=== PATIENT | male | born 1990 | race Caucasian/White ===

== ENCOUNTER 2018-03-14 13:11 | Inpatient (IN) | payer OTHER ==
[2018-03-14 17:02] VITALS: BMI 24.7
--- NOTE | 2018-03-14 18:07 | HP ---
"CIWA Score - Admission Criteria OASAS Guidelines: Admission for Medically Managed Detox: Requires at least one of the followin. CIWA greater than 12 2. Seizures within the past 24 hours 3. Delirium tremens within the past 24 hours 4. Hallucinations within the past 24 hours 5. Acute intervention needed for co occurring medical disorder 6. Acute intervention needed for co occurring psychiatric disorder 7. Severe withdrawal that cannot be handled at a lower level of care (continued vomiting, continued diarrhea, abnormal vital signs) requiring intravenous medication and/or fluids 8. Admission ROS S - HPI Allergies/Adverse Reactions: Allergies Allergy/AdvReac Type Severity Reaction Status Date / Time No Known Allergies Allergy Verified 03/14/18 17:20 History of Present Illness: patient here for rehab, claims he has court mandate for 28 days , does not have court order with him . Patient reports heroin use x 10 years , latest use last Tuesday , buprenorphine latest use last Tuesday . Heroin use : 4 bags /day IVDU in left UE, needles from the pharmacy , + sharing, + re-using, denies abscess , OD x 5-6 , Narcan by EMS , latest 1 yr ago . past use : benzo xanax stopped 6 mo ago , cocaine sporadic use latest use 3 weeks ago . etoh use : 3 beers/ day . tobacco : 1/[address] x 2 years due to continued relapse , was in half-way in the last week , released last night , transferred to this facility from [facility] . 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 was requested by: Nikki Willingham | Reference #: [id number] Others' Prescriptions Patient Name: Nitin Aguirre Date: 1990 Address: [address] [place] [id number] Sex: Male Rx Written Rx Dispensed Drug Quantity Days Supply Prescriber Name 03/09/2018 03/13/2018 chlordiazepoxide 25 mg capsule 26 5 Andrés Reynolds MD 08/18/2017 08/18/2017 chlordiazepoxide 25 mg capsule 26 5 Andrés Reynolds MD Patient Name: Nitin Aguirre Date: 1990 Address: [address] [place] [id number] Sex: Male Rx Written Rx Dispensed Drug Quantity Days Supply Prescriber Name 01/25/2018 01/25/2018 suboxone 4 mg-1 mg sl film 30 15 Valorie Solano NP, PHD 11/22/2017 11/30/2017 suboxone 4 mg-1 mg sl film 30 15 Lavonne Stokes 10/18/2017 10/18/2017 suboxone 4 mg-1 mg sl film 60 30 Lavonne Stokes 10/11/2017 10/11/2017 suboxone 4 mg-1 mg sl film 14 7 Lavonne Stokes 09/13/2017 09/13/2017 suboxone 4 mg-1 mg sl film 60 30 Lavonne Stokes 09/06/2017 09/06/2017 suboxone 4 mg-1 mg sl film 14 7 Valorie Solano NP, PHD 08/30/2017 08/30/2017 suboxone 4 mg-1 mg sl film 14 7 Valorie Solano NP, PHD PMHx : denies PSHx : denies PSych : depression, anxiety , denies SI / HI SHx: lives w/ father , supportive of pt's recovery , works at [employer] . Exam Limitations: No Limitations - Ebola screening Have you traveled outside of the country in the last 21 days: No Have you had contact with anyone from an Ebola affected area: No Have you been sick,other than usual withdrawal symptoms: No Do you have a fever: No - Review of Systems Constitutional: No Symptoms Reported EENT: reports: No Symptoms Reported Respiratory: reports: No Symptoms reported Cardiac: reports: No Symptoms Reported GI: reports: No Symptoms Reported : reports: No Symptoms Reported Musculoskeletal: reports: No Symptoms Reported Integumentary: reports: See HPI Neuro: reports: No Symptoms reported Psychiatric: reports: Orientated x3, Agitated, Anxious, Depressed, other ( difficulty sleeping) Patient History - Patient Medical History Hx Anemia: No Hx Asthma: No Hx Chronic Obstructive Pulmonary Disease (COPD): No Hx Cancer: No Hx Cardiac Disorders: No Hx Hypertension: No Hx Pacemaker: No Hx Seizures: No Hx Diabetes: No Hx Gastrointestinal Disorders: No Hx Liver Disease: No Hx Genitourinary Disorders: No Hx Sexually Transmitted Disorders: No Hx Renal Disease (ESRD): No Hx Thyroid Disease: No Hx Human Immunodeficiency Virus (HIV): No Hx Hepatitis C: No Hx Depression: Yes (with anxiety) Hx Bipolar Disorder: No Hx Schizophrenia: No - Patient Surgical History Past Surgical History: No - Smoking Cessation Smoking history: Current every day smoker Have you smoked in the past 12 months: Yes Aproximately how many cigarettes per day: 10 Hx Chewing Tobacco Use: No Initiated information on smoking cessation: No Family Disease History - Family Disease History Family Disease History: Other: Father (living, healthy), Mother (living, healthy ) Admission Physical Exam [facility] - Vital Signs Vital Signs: Vital Signs - 24 hr 03/14/18 17:01 Temperature 97.6 F Pulse Rate 95 H Respiratory 18 Rate Blood Pressure 111/67 - Physical General Appearance: Yes: Mild Distress, Anxious HEENTM: Yes: EOMI, Hearing grossly Normal, Normocephalic, Normal Voice, Other ( upper partial dentures) Respiratory: Yes: Chest Non-Tender, Lungs Clear Neck: Yes: No masses,lesions,Nodules, Trachea in good position Cardiology: Yes: Regular Rhythm, Regular Rate, S1, S2 Abdominal: Yes: Normal Bowel Sounds, Soft Back: Yes: Normal Inspection Musculoskeletal: Yes: Gait Steady Extremities: Yes: Normal Range of Motion Neurological: Yes: Motor Strength 5/5 Integumentary: Yes: Normal Color - Diagnostic (1) Alcohol abuse Current Visit: No Status: Acute (2) Nicotine dependence Current Visit: No Status: Chronic Qualifiers: Nicotine product type: cigarettes (3) Opioid dependence Current Visit: No Status: Acute Qualifiers: Substance use status: uncomplicated Comment: suboxone agreement reviewed and signed - safekeeping emphasized, need to abstain from alcohol discussed and to attend [facility] groups need to obtain labwork, will start suboxone 4mg bid BH Breath Alcohol Content Breath Alcohol Content: 0 Urine Drug Screen - Results Drug Screen Negative: No Urine Drug Screen Results: BZO-Benzodiazepines Inpatient Rehab Admission - Initial Determination Are CD services needed?: Yes Free of communicable disease: Yes Not in need of hospitalization: Yes - Rehab Admission Criteria Previous failed treatment: Yes Poor recovery environment: No Comorbidities: No Lacks judgement: Yes Patient is meeting Inpatient Rehab admission criteria:: Yes (court mandate per pt . )"
[2018-03-14] MEDS ORDERED: guaiFENesin/D-METHORPHAN HB 10 ML UNIT-DOSE CUPS PO PRN (18:13)
[2018-03-14] MEDS ORDERED: MAG HYDROX/AL HYDROX/SIMETH 30 ML UNIT-DOSE CUP PO PRN (18:13)
[2018-03-14] MEDS ORDERED: MENTHOL/PHENOL 1 EACH UD MM PRN (18:13)
[2018-03-14] MEDS ORDERED: IBUPROFEN 400 MG TABLET (FP) PO PRN (18:13)
[2018-03-14] MEDS ORDERED: P-EPHED 60MG/TRIPROLIDI 2.5MG TABLET PO PRN (18:13)
[2018-03-14] MEDS ORDERED: MAGNESIUM CITRATE 300 ML BOTTLE PO PRN (18:13)
[2018-03-14] MEDS: THIAMINE HCL 100 MG TABLET (FP) PO SCH (21:44)
[2018-03-14] MEDS: ACETAMINOPHEN 325 MG TABLET (FP) PO PRN (21:45)
[2018-03-14] MEDS ORDERED: MELATONIN 5 MG TABLETS PO PRN (22:00)
[2018-03-15 01:52] LABS: URINE APPEARANCE CLEAR; URINE BILIRUBIN NEGATIVE (<2.0 mg/dL); URINE COLOR LTYELLOW; URINE GLUCOSE (UA) NEGATIVE (NEGATIVE); URINE KETONE NEGATIVE (NEGATIVE); URINE LEUK ESTERASE NEGATIVE (NEGATIVE); URINE NITRITE NEGATIVE (NEGATIVE); URINE PROTEIN NEGATIVE (NEGATIVE); URINE UROBILINOGEN NEGATIVE mg/dL (0.2-1.0)
[2018-03-15] MEDS: PRENATAL VITAMINS W/ FOLIC ACID TABLET (FP) PO SCH (10:24)
--- NOTE | 2018-03-15 11:25 | PN ---
[facility] Progress Note Note: PT IS A 28 Y/O MALE ADMITTED TO REHAB ON 03/14/[address] DRUG COURT. PT REPORTS HE WAS AT [facility], GOING TO SCHOOL, WORKING AND ON SUBOXONE BUT " "RELAPSED" AFTER DOING GOOD FOR 6 MONTHS. PT REPORTS HE WAS SENT TO [facility] AND RELEASED ON 03/13/18. PT STATES HE HAS BEEN RECOMMENDED FOR MAT WITH VIVITROL WHILE IN REHAB. REPORTS STRESS AND POOR MANAGEMENT EXCEPT TURNING TO DRUGS. MEANWHILE PT REPORTS ANXIETY AND DEPRESSION AND WAS ON TREATMENT WITH ZOLOFT, REMERON AND PROPANOLOL(NO DOSAGE GIVEN TO CLINICAL DOCUMENTATION CLERK AT THIS TIME.) ALERT O X 3. DENIES S/I. Vital Signs 03/15/18 03/15/18 03:30 07:00 Temperature 97.8 F Pulse Rate 75 Respiratory 18 18 Rate Blood Pressure 108/76 Laboratory Tests 03/14/18 22:33 Urine Color Ltyellow Urine Appearance Clear Urine pH 6.0 Ur Specific [place] 1.012 Urine Protein Negative Urine Glucose (UA) Negative Urine Ketones Negative Urine Blood Negative Urine Nitrite Negative Urine Bilirubin Negative Urine Urobilinogen Negative Ur Leukocyte Esterase Negative OTHER LABS PENDING NAD PLAN:REFER FOR PSYCH EVALUATION TODAY. WILL EVALUATE FOR MAT PER PROTOCOL.
[2018-03-15 11:50] LABS: HEMOGLOBIN 14.4 GM/dL (11.7-16.9); MCH 30.7 pg (25.7-33.7); MCHC 34.3 g/dl (32.0-35.9); MEAN CELL VOLUME 89.3 fl (80-96); MEAN PLT VOLUME 9.3 fl (7.5-11.1); PLATELET COUNT 309 K/MM3 (134-434); RDW 13.1 % (11.9-15.9); WHITE BLOOD COUNT 5.4 K/mm3 (4.0-10.0)
[2018-03-15 12:23] LABS: ALBUMIN 4.2 g/dl (3.4-5.0); ALK PHOS 64 U/L (45-117); ANION GAP 7 MMOL/L (8-16); BILIRUBIN,TOTAL 0.4 mg/dL (0.2-1); BLOOD UREA NITROGEN 10 mg/dL (7-18); CALCIUM 9.3 mg/dL (8.5-10.1); CHLORIDE 102 mmol/L (98-107); CO2 29 mmol/L (21-32); CREATININE 1.1 mg/dL (0.55-1.3); GLUCOSE,RANDOM 138 mg/dL (74-106); POTASSIUM 4.3 mmol/L (3.5-5.1); SGOT/AST 11 U/L (15-37); SGPT/ALT 25 U/L (13-61); SODIUM 139 mmol/L (136-145); TOT PROT 7.2 g/dl (6.4-8.2)
--- NOTE | 2018-03-15 12:54 | CONSULT ---
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 Substance Abuse History: Reports drinking since 15 yo on and off,cocaine since 16 yo,heroin since 17 yo iv(3-4 dags daily).Longest abstinence about 3 months only. Medical History: Unremarkable. Psychiatric History: First contact with psychiatrsit was at 18 years old.He addressed depressed mood anxiety,medicated himself with alcohol and drugs.No psychiatric admissions reported.patient waqs dx with Mood disorder.He was placed on prozac 20 mg po daily and xanax 0,5 mg prn.paqtient reports some response to medications.he stopped prozac since he was better.he was on xanax on and off.recently he was placed on zoloft with no response(25 mg to 200 mg ) .patient sees psychiatrist in provate office in [facility],stopped to see a dr in November 2017.Patient is willing to restart medications whilr being in treatment now. Physical/Sexual Abuse/Trauma History: denies Mental Status Exam - Mental Status Exam Alert and Oriented to: Time, Place, Person Cognitive Function: Grossly Intact Patient Appearance: Well Groomed Mood: Sad, Anxious Affect: Mood Congruent, Labile Patient Behavior: Cooperative Speech Pattern: Clear Voice Loudness: Normal Thought Process: Goal Oriented Thought Disorder: Not Present Hallucinations: Denies Suicidal Ideation: Denies Homicidal Ideation: Denies Insight/Judgement: Fair Sleep: Poorly Appetite: Good Muscle strength/Tone: Normal Gait/Station: Normal Psychiatric Findings - Problem List ([place] 1, 2,3) (1) Drug-induced mood disorder Current Visit: Yes Status: Chronic (2) Opioid dependence Current Visit: Yes Status: Chronic Qualifiers: Substance use status: uncomplicated Qualified Code(s): F11.20 - Opioid dependence, uncomplicated Comment: suboxone agreement reviewed and signed - safekeeping emphasized, need to abstain from alcohol discussed and to attend [facility] groups need to obtain labwork, will start suboxone 4mg bid (3) Nicotine dependence Current Visit: Yes Status: Chronic Qualifiers: Nicotine product type: cigarettes (4) Alcohol dependence Current Visit: Yes Status: Chronic (5) Cocaine abuse Current Visit: Yes Status: Chronic (6) Xanax use disorder, mild Current Visit: Yes Status: Chronic - Initial Treatment Plan Initial Treatment Plan: Restart Remeron 15 mg po hs,propranolol 20 mg po q 6 prn for anxiety..Consider Vivitrol 318 mg IM on monthly basis.Will monitor progress.
[2018-03-15] MEDS ORDERED: LOPERAMIDE HCL 2 MG CAPSULE PO PRN (14:05)
[2018-03-15] MEDS: THIAMINE HCL 100 MG TABLET (FP) PO SCH (21:53)
[2018-03-15] MEDS: MIRTAZAPINE 15 MG TABLET (FP) PO SCH (21:53)
[2018-03-15] MEDS: hydrOXYzine PAMOATE 50 MG CAPSULE (FP) PO PRN (21:54)
[2018-03-16] MEDS: PRENATAL VITAMINS W/ FOLIC ACID TABLET (FP) PO SCH (10:03)
[2018-03-16] MEDS: hydrOXYzine PAMOATE 50 MG CAPSULE (FP) PO PRN ×2 (11:03→21:50)
[2018-03-16] MEDS: THIAMINE HCL 100 MG TABLET (FP) PO SCH (21:49)
[2018-03-16] MEDS: MIRTAZAPINE 15 MG TABLET (FP) PO SCH (21:49)
[2018-03-17] MEDS: PRENATAL VITAMINS W/ FOLIC ACID TABLET (FP) PO SCH (10:44)
[2018-03-17] MEDS: hydrOXYzine PAMOATE 50 MG CAPSULE (FP) PO PRN ×2 (10:44→21:49)
[2018-03-17] MEDS: NICOTINE POLACRILEX 2 MG GUM BC PRN (10:45)
[2018-03-17] MEDS: THIAMINE HCL 100 MG TABLET (FP) PO SCH (21:49)
[2018-03-17] MEDS: MIRTAZAPINE 15 MG TABLET (FP) PO SCH (21:49)
[2018-03-18] MEDS: hydrOXYzine PAMOATE 50 MG CAPSULE (FP) PO PRN ×2 (10:29→21:52)
[2018-03-18] MEDS: PRENATAL VITAMINS W/ FOLIC ACID TABLET (FP) PO SCH (10:29)
[2018-03-18] MEDS: MIRTAZAPINE 15 MG TABLET (FP) PO SCH (21:51)
[2018-03-18] MEDS: THIAMINE HCL 100 MG TABLET (FP) PO SCH (21:51)
[2018-03-18] MEDS: MELATONIN 5 MG TABLETS PO PRN (21:52)
[2018-03-19] MEDS: PRENATAL VITAMINS W/ FOLIC ACID TABLET (FP) PO SCH (10:41)
[2018-03-19] MEDS: ACETAMINOPHEN 325 MG TABLET (FP) PO PRN (10:42)
[2018-03-19] MEDS: MAGNESIUM HYDROX 2400MG/30ML ORAL SUSPENSION 30 ML CUP PO PRN (10:42)
[2018-03-19] MEDS: hydrOXYzine PAMOATE 50 MG CAPSULE (FP) PO PRN (10:42)
[2018-03-19] MEDS: MIRTAZAPINE 15 MG TABLET (FP) PO SCH (21:50)
[2018-03-19] MEDS: MELATONIN 5 MG TABLETS PO PRN (21:51)
[2018-03-19] MEDS: THIAMINE HCL 100 MG TABLET (FP) PO SCH (21:51)
[2018-03-20] MEDS: ACETAMINOPHEN 325 MG TABLET (FP) PO PRN (10:50)
[2018-03-20] MEDS: PRENATAL VITAMINS W/ FOLIC ACID TABLET (FP) PO SCH (10:50)
[2018-03-20] MEDS: hydrOXYzine PAMOATE 50 MG CAPSULE (FP) PO PRN ×2 (10:52→22:00)
[2018-03-20] MEDS: MIRTAZAPINE 15 MG TABLET (FP) PO SCH (21:59)
[2018-03-20] MEDS: THIAMINE HCL 100 MG TABLET (FP) PO SCH (21:59)
[2018-03-20] MEDS: MELATONIN 5 MG TABLETS PO PRN (22:00)
[2018-03-21] MEDS: PRENATAL VITAMINS W/ FOLIC ACID TABLET (FP) PO SCH (10:36)
[2018-03-21] MEDS: hydrOXYzine PAMOATE 50 MG CAPSULE (FP) PO PRN (10:37)
--- NOTE | 2018-03-21 13:50 | PN ---
[facility] Progress Note Note: MAT INTAKE DOCUMENT: PT IS A 28 Y/O MALE WITH A HX OF HEROIN, BENZOS,COCAINE AND ALCOHOL USE MANDATED TO REHAB TREATMENT BY [facility] COURT(SEE H/P). PT REPORTS WAS ON SUBOXONE FOR 6 YRS BUT RELAPSED ON SEVERAL OCCASIONS. ALSO REPORTS OD X 5-6 WITH NARCAN RESUCITATION ONE YEAR AGO. PT AGREES TO TRY NALTREXONE THEN VIVITROL TO ADDRESS HIS DRUG USE. Vital Signs - 24 hr 03/21/18 03/21/18 03/21/18 00:30 03:30 07:16 Temperature 98.7 F Pulse Rate 92 H Respiratory 18 18 18 Rate Blood Pressure 118/71 Laboratory Tests 03/14/18 03/15/18 03/15/18 22:33 08:30 08:30 WBC 5.4 RBC 4.70 Hgb 14.4 Hct 42.0 MCV 89.3 MCH 30.7 MCHC 34.3 RDW 13.1 Plt Count 309 MPV 9.3 Sodium 139 Potassium 4.3 Chloride 102 Carbon Dioxide 29 Anion Gap 7 L BUN 10 Creatinine 1.1 Creat Clearance w eGFR > 60 Random Glucose 138 H Calcium 9.3 Total Bilirubin 0.4 AST 11 L ALT 25 Alkaline Phosphatase 64 Total Protein 7.2 Albumin 4.2 Urine Color Ltyellow Urine Appearance Clear Urine pH 6.0 Ur Specific [place] 1.012 Urine Protein Negative Urine Glucose (UA) Negative Urine Ketones Negative Urine Blood Negative Urine Nitrite Negative Urine Bilirubin Negative Urine Urobilinogen Negative Ur Leukocyte Esterase Negative RPR Titer 03/15/18 08:30 WBC RBC Hgb Hct MCV MCH MCHC RDW Plt Count MPV Sodium Potassium Chloride Carbon Dioxide Anion Gap BUN Creatinine Creat Clearance w eGFR Random Glucose Calcium Total Bilirubin AST ALT Alkaline Phosphatase Total Protein Albumin Urine Color Urine Appearance Urine pH Ur Specific [place] Urine Protein Urine Glucose (UA) Urine Ketones Urine Blood Urine Nitrite Urine Bilirubin Urine Urobilinogen Ur Leukocyte Esterase RPR Titer Nonreactive UDS (+) BENZO Active Medications Generic Name Dose Route Start Last Admin Trade Name Freq PRN Reason Stop Dose Admin Acetaminophen 650 mg 03/14/18 18:13 03/20/18 10:50 Tylenol - PO 650 mg Q4H PRN Administration FEVER Al Hydroxide/Mg Hydroxide 30 ml 03/14/18 18:13 Mylanta Oral Suspension - PO Q6H PRN DYSPEPSIA Eucalyptus/Menthol/Phenol/Sorbitol 1 each 03/14/18 18:13 Cepastat Lozenge - MM Q4H PRN SORE THROAT Guaifenesin 10 ml 03/14/18 18:13 Robitussin Dm - PO Q6H PRN COUGH Hydroxyzine Pamoate 50 mg 03/15/18 13:50 03/21/18 10:37 Vistaril - PO 50 mg Q4H PRN Administration ANXIETY Ibuprofen 400 mg 03/14/18 18:13 Motrin - PO Q6H PRN Pain level 4-6 Loperamide HCl 4 mg 03/15/18 14:05 Imodium - PO Q6H PRN DIARRHEA Magnesium Citrate 300 ml 03/14/18 18:13 Citroma - PO Q48H PRN CONSTIPATION Magnesium Hydroxide 30 ml 03/14/18 18:13 03/19/18 10:42 Milk Of Magnesia - PO 30 ml DAILY PRN Administration CONSTIPATION Melatonin 10 mg 03/15/18 13:52 03/20/18 22:00 Melatonin PO 10 mg HS PRN Administration INSOMNIA Mirtazapine 15 mg 03/15/18 22:00 03/20/18 21:59 Remeron - PO 15 mg HS MICHAEL Administration Nicotine Polacrilex 2 mg 03/14/18 18:13 03/17/18 10:45 Nicorette Gum - BC 2 mg Q2H PRN Administration NICOTINE REPLACEMENT RX Multivit/Folic Acid/Iron 1 tab 03/15/18 10:00 03/21/18 10:36 Vitamins (Sjr) - PO 1 tab DAILY MICHAEL Administration Propranolol HCl 20 mg 03/15/18 13:51 Inderal - PO Q6H PRN ANXIETY Pseudoephedrine/Triprolidine 1 combo 03/14/18 18:13 Actifed - PO TID PRN NASAL CONGESTION Thiamine HCl 100 mg 03/14/18 22:00 03/20/18 21:59 Vitamin B1 - PO 100 mg HS MICHAEL Administration PLAN: DISCUSSED TREATMENT WITH PT AND AGREE TO POC. WILL START NALTREXONE 25 MG PO X 1 CHALLENGE, THEN 50 MG PO DAILY WILL TRANSITION TO VIVITROL 380 MG INJ MONTHLY THEREAFTER BEFORE DISCHARGE TO [facility] TREATMENT IOP.
[2018-03-21] MEDS: THIAMINE HCL 100 MG TABLET (FP) PO SCH (21:58)
[2018-03-21] MEDS: MELATONIN 5 MG TABLETS PO PRN (21:59)
[2018-03-21] MEDS: MIRTAZAPINE 15 MG TABLET (FP) PO SCH (21:59)
[2018-03-22] MEDS ORDERED: NALTREXONE HCL 50 MG TABLET PO ONE (10:00)
[2018-03-22] MEDS: PRENATAL VITAMINS W/ FOLIC ACID TABLET (FP) PO SCH (10:25)
[2018-03-22] MEDS: hydrOXYzine PAMOATE 50 MG CAPSULE (FP) PO PRN (10:26)
[2018-03-22] MEDS: MELATONIN 5 MG TABLETS PO PRN (21:55)
[2018-03-22] MEDS: MIRTAZAPINE 15 MG TABLET (FP) PO SCH (21:55)
[2018-03-22] MEDS: THIAMINE HCL 100 MG TABLET (FP) PO SCH (21:55)
[2018-03-23] MEDS: NALTREXONE HCL 50 MG TABLET PO SCH (10:43)
[2018-03-23] MEDS: PRENATAL VITAMINS W/ FOLIC ACID TABLET (FP) PO SCH (10:43)
[2018-03-23] MEDS: hydrOXYzine PAMOATE 50 MG CAPSULE (FP) PO PRN (10:44)
[2018-03-23] MEDS: MIRTAZAPINE 15 MG TABLET (FP) PO SCH (21:59)
[2018-03-23] MEDS: THIAMINE HCL 100 MG TABLET (FP) PO SCH (21:59)
[2018-03-23] MEDS: MELATONIN 5 MG TABLETS PO PRN (21:59)
[2018-03-24] MEDS: PRENATAL VITAMINS W/ FOLIC ACID TABLET (FP) PO SCH (10:56)
[2018-03-24] MEDS: NALTREXONE HCL 50 MG TABLET PO SCH (10:56)
[2018-03-24] MEDS: hydrOXYzine PAMOATE 50 MG CAPSULE (FP) PO PRN (10:56)
[2018-03-24] MEDS: MIRTAZAPINE 15 MG TABLET (FP) PO SCH (22:04)
[2018-03-24] MEDS: MELATONIN 5 MG TABLETS PO PRN (22:04)
[2018-03-24] MEDS: THIAMINE HCL 100 MG TABLET (FP) PO SCH (22:04)
[2018-03-25] MEDS: NALTREXONE HCL 50 MG TABLET PO SCH (10:43)
[2018-03-25] MEDS: hydrOXYzine PAMOATE 50 MG CAPSULE (FP) PO PRN (10:43)
[2018-03-25] MEDS: PRENATAL VITAMINS W/ FOLIC ACID TABLET (FP) PO SCH (10:43)
[2018-03-25] MEDS: MAGNESIUM HYDROX 2400MG/30ML ORAL SUSPENSION 30 ML CUP PO PRN (10:44)
[2018-03-25] MEDS: NICOTINE POLACRILEX 2 MG GUM BC PRN (10:45)
[2018-03-25] MEDS: MIRTAZAPINE 15 MG TABLET (FP) PO SCH (21:54)
[2018-03-25] MEDS: MELATONIN 5 MG TABLETS PO PRN (21:54)
[2018-03-25] MEDS: THIAMINE HCL 100 MG TABLET (FP) PO SCH (21:54)
[2018-03-26] MEDS: NALTREXONE HCL 50 MG TABLET PO SCH (10:28)
[2018-03-26] MEDS: PRENATAL VITAMINS W/ FOLIC ACID TABLET (FP) PO SCH (10:28)
[2018-03-26] MEDS: hydrOXYzine PAMOATE 50 MG CAPSULE (FP) PO PRN (10:29)
[2018-03-26] MEDS: ACETAMINOPHEN 325 MG TABLET (FP) PO PRN (15:33)
[2018-03-26] MEDS: THIAMINE HCL 100 MG TABLET (FP) PO SCH (21:47)
[2018-03-26] MEDS: MELATONIN 5 MG TABLETS PO PRN (21:48)
[2018-03-26] MEDS: MIRTAZAPINE 15 MG TABLET (FP) PO SCH (21:48)
[2018-03-27] MEDS: PRENATAL VITAMINS W/ FOLIC ACID TABLET (FP) PO SCH (10:20)
[2018-03-27] MEDS: NALTREXONE HCL 50 MG TABLET PO SCH (10:20)
[2018-03-27] MEDS: hydrOXYzine PAMOATE 50 MG CAPSULE (FP) PO PRN (10:21)
[2018-03-27] MEDS: MELATONIN 5 MG TABLETS PO PRN (22:04)
[2018-03-27] MEDS: MIRTAZAPINE 15 MG TABLET (FP) PO SCH (22:04)
[2018-03-27] MEDS: THIAMINE HCL 100 MG TABLET (FP) PO SCH (22:04)
[2018-03-28] MEDS: PRENATAL VITAMINS W/ FOLIC ACID TABLET (FP) PO SCH (10:44)
[2018-03-28] MEDS: NALTREXONE HCL 50 MG TABLET PO SCH (10:44)
[2018-03-28] MEDS: hydrOXYzine PAMOATE 50 MG CAPSULE (FP) PO PRN (10:45)
[2018-03-28] MEDS: THIAMINE HCL 100 MG TABLET (FP) PO SCH (22:05)
[2018-03-28] MEDS: MIRTAZAPINE 15 MG TABLET (FP) PO SCH (22:05)
[2018-03-28] MEDS: MELATONIN 5 MG TABLETS PO PRN (22:06)
[2018-03-29] MEDS: NALTREXONE HCL 50 MG TABLET PO SCH (11:10)
[2018-03-29] MEDS: PRENATAL VITAMINS W/ FOLIC ACID TABLET (FP) PO SCH (11:10)
[2018-03-29] MEDS: hydrOXYzine PAMOATE 50 MG CAPSULE (FP) PO PRN (11:12)
[2018-03-29] MEDS: MELATONIN 5 MG TABLETS PO PRN (21:52)
[2018-03-29] MEDS: MIRTAZAPINE 15 MG TABLET (FP) PO SCH (21:52)
[2018-03-29] MEDS: THIAMINE HCL 100 MG TABLET (FP) PO SCH (21:52)
[2018-03-30] MEDS: PRENATAL VITAMINS W/ FOLIC ACID TABLET (FP) PO SCH (10:51)
[2018-03-30] MEDS: NALTREXONE HCL 50 MG TABLET PO SCH (10:51)
[2018-03-30] MEDS: hydrOXYzine PAMOATE 50 MG CAPSULE (FP) PO PRN (10:52)
[2018-03-30] MEDS: NICOTINE POLACRILEX 2 MG GUM BC PRN (10:52)
[2018-03-30] MEDS: MELATONIN 5 MG TABLETS PO PRN (21:47)
[2018-03-30] MEDS: THIAMINE HCL 100 MG TABLET (FP) PO SCH (21:47)
[2018-03-30] MEDS: MIRTAZAPINE 15 MG TABLET (FP) PO SCH (21:47)
[2018-03-31] MEDS: NALTREXONE HCL 50 MG TABLET PO SCH (10:32)
[2018-03-31] MEDS: PRENATAL VITAMINS W/ FOLIC ACID TABLET (FP) PO SCH (10:32)
[2018-03-31] MEDS: hydrOXYzine PAMOATE 50 MG CAPSULE (FP) PO PRN (10:33)
[2018-03-31] MEDS: NICOTINE POLACRILEX 2 MG GUM BC PRN (10:34)
[2018-03-31] MEDS: MELATONIN 5 MG TABLETS PO PRN (21:41)
[2018-03-31] MEDS: THIAMINE HCL 100 MG TABLET (FP) PO SCH (21:41)
[2018-03-31] MEDS: MIRTAZAPINE 15 MG TABLET (FP) PO SCH (21:41)
[2018-04-01] MEDS: PRENATAL VITAMINS W/ FOLIC ACID TABLET (FP) PO SCH (10:14)
[2018-04-01] MEDS: NALTREXONE HCL 50 MG TABLET PO SCH (10:14)
[2018-04-01] MEDS: hydrOXYzine PAMOATE 50 MG CAPSULE (FP) PO PRN (10:15)
[2018-04-01] MEDS: NICOTINE POLACRILEX 2 MG GUM BC PRN (10:15)
[2018-04-01] MEDS: THIAMINE HCL 100 MG TABLET (FP) PO SCH (21:42)
[2018-04-01] MEDS: MIRTAZAPINE 15 MG TABLET (FP) PO SCH (21:42)
[2018-04-01] MEDS: MELATONIN 5 MG TABLETS PO PRN (21:43)
[2018-04-02] MEDS: NALTREXONE HCL 50 MG TABLET PO SCH (10:37)
[2018-04-02] MEDS: PRENATAL VITAMINS W/ FOLIC ACID TABLET (FP) PO SCH (10:37)
[2018-04-02] MEDS: NICOTINE POLACRILEX 2 MG GUM BC PRN (10:39)
[2018-04-02] MEDS: hydrOXYzine PAMOATE 50 MG CAPSULE (FP) PO PRN (10:39)
[2018-04-02] MEDS: THIAMINE HCL 100 MG TABLET (FP) PO SCH (21:48)
[2018-04-02] MEDS: MIRTAZAPINE 15 MG TABLET (FP) PO SCH (21:48)
[2018-04-02] MEDS: MELATONIN 5 MG TABLETS PO PRN (21:48)
[2018-04-03] MEDS: NALTREXONE HCL 50 MG TABLET PO SCH (11:01)
[2018-04-03] MEDS: PRENATAL VITAMINS W/ FOLIC ACID TABLET (FP) PO SCH (11:01)
[2018-04-03] MEDS ORDERED: hydrOXYzine PAMOATE 25 MG CAPSULE (FP) PO ONE (11:02)
[2018-04-03] MEDS: NICOTINE POLACRILEX 2 MG GUM BC PRN (11:03)
[2018-04-03] MEDS: hydrOXYzine PAMOATE 50 MG CAPSULE (FP) PO PRN (11:03)
[2018-04-03] MEDS: MELATONIN 5 MG TABLETS PO PRN (22:08)
[2018-04-03] MEDS: MIRTAZAPINE 15 MG TABLET (FP) PO SCH (22:08)
[2018-04-03] MEDS: THIAMINE HCL 100 MG TABLET (FP) PO SCH (22:08)
[2018-04-04] MEDS: NALTREXONE HCL 50 MG TABLET PO SCH (10:53)
[2018-04-04] MEDS: PRENATAL VITAMINS W/ FOLIC ACID TABLET (FP) PO SCH (10:53)
[2018-04-04] MEDS: NICOTINE POLACRILEX 2 MG GUM BC PRN ×2 (10:53→21:55)
[2018-04-04] MEDS: hydrOXYzine PAMOATE 50 MG CAPSULE (FP) PO PRN (10:54)
[2018-04-04] MEDS: THIAMINE HCL 100 MG TABLET (FP) PO SCH (21:55)
[2018-04-04] MEDS: MELATONIN 5 MG TABLETS PO PRN (21:55)
[2018-04-04] MEDS: MIRTAZAPINE 15 MG TABLET (FP) PO SCH (21:55)
[2018-04-05] MEDS ORDERED: NALTREXONE HCL 50 MG TABLET PO ONE (10:00)
[2018-04-05] MEDS: PRENATAL VITAMINS W/ FOLIC ACID TABLET (FP) PO SCH (10:49)
[2018-04-05] MEDS: hydrOXYzine PAMOATE 50 MG CAPSULE (FP) PO PRN (10:50)
[2018-04-05] MEDS: NICOTINE POLACRILEX 2 MG GUM BC PRN (10:50)
[2018-04-05] MEDS: MELATONIN 5 MG TABLETS PO PRN (21:49)
[2018-04-05] MEDS: MIRTAZAPINE 15 MG TABLET (FP) PO SCH (21:49)
[2018-04-05] MEDS: THIAMINE HCL 100 MG TABLET (FP) PO SCH (21:49)
[2018-04-06] MEDS ORDERED: NALTREXONE MICROSPHERES (VIVITROL) 380 MG DISP.SYRIN IM ONE (10:00)
[2018-04-06] MEDS: hydrOXYzine PAMOATE 50 MG CAPSULE (FP) PO PRN (10:19)
[2018-04-06] MEDS: PRENATAL VITAMINS W/ FOLIC ACID TABLET (FP) PO SCH (10:19)
[2018-04-06] MEDS: NICOTINE POLACRILEX 2 MG GUM BC PRN (10:20)
--- NOTE | 2018-04-06 12:14 | PN ---
[facility] Progress Note Note: PT RECEIVED LAST NALTREXONE 50 MG PO ON 04/05/18 AND RECEIVE FIRST DOSE OF VIVITROL 380 MG INJ. I.M TODAY 04/06/18 ON RIGHT GLUTEAL MUSCLE(SEE NURSE'S NOTE) . PT WILL FOLLOW UP WITH CONTINUED CD AFTERCARE TREATMENT AT [facility], [facility] AND NEXT SUBSEQUENT DOSES. NEXT DOSE DUE ON ABOUT 05/04/18. Vital Signs - 24 hr 04/06/18 04/06/18 04/06/18 00:30 03:30 07:21 Temperature 97.4 F L Pulse Rate 97 H Respiratory 18 18 18 Rate Blood Pressure 114/70 Laboratory Tests 03/14/18 03/15/18 03/15/18 22:33 08:30 08:30 WBC 5.4 RBC 4.70 Hgb 14.4 Hct 42.0 MCV 89.3 MCH 30.7 MCHC 34.3 RDW 13.1 Plt Count 309 MPV 9.3 Sodium 139 Potassium 4.3 Chloride 102 Carbon Dioxide 29 Anion Gap 7 L BUN 10 Creatinine 1.1 Creat Clearance w eGFR > 60 Random Glucose 138 H Calcium 9.3 Total Bilirubin 0.4 AST 11 L ALT 25 Alkaline Phosphatase 64 Total Protein 7.2 Albumin 4.2 Urine Color Ltyellow Urine Appearance Clear Urine pH 6.0 Ur Specific [place] 1.012 Urine Protein Negative Urine Glucose (UA) Negative Urine Ketones Negative Urine Blood Negative Urine Nitrite Negative Urine Bilirubin Negative Urine Urobilinogen Negative Ur Leukocyte Esterase Negative RPR Titer 03/15/18 08:30 WBC RBC Hgb Hct MCV MCH MCHC RDW Plt Count MPV Sodium Potassium Chloride Carbon Dioxide Anion Gap BUN Creatinine Creat Clearance w eGFR Random Glucose Calcium Total Bilirubin AST ALT Alkaline Phosphatase Total Protein Albumin Urine Color Urine Appearance Urine pH Ur Specific [place] Urine Protein Urine Glucose (UA) Urine Ketones Urine Blood Urine Nitrite Urine Bilirubin Urine Urobilinogen Ur Leukocyte Esterase RPR Titer Nonreactive PLAN:PT INSTRUCTED TO F/U WITH START FOR ANY UNUSUAL SYMPTOMS.
[2018-04-06] MEDS: MIRTAZAPINE 15 MG TABLET (FP) PO SCH (21:48)
[2018-04-06] MEDS: THIAMINE HCL 100 MG TABLET (FP) PO SCH (21:48)
[2018-04-06] MEDS: MELATONIN 5 MG TABLETS PO PRN (21:49)
[2018-04-06] MEDS: ACETAMINOPHEN 325 MG TABLET (FP) PO PRN (21:49)
[2018-04-07] MEDS: PRENATAL VITAMINS W/ FOLIC ACID TABLET (FP) PO SCH (10:44)
[2018-04-07] MEDS: NICOTINE POLACRILEX 2 MG GUM BC PRN (10:45)
[2018-04-07] MEDS: hydrOXYzine PAMOATE 50 MG CAPSULE (FP) PO PRN (10:45)
[2018-04-07] MEDS: MIRTAZAPINE 15 MG TABLET (FP) PO SCH (21:59)
[2018-04-07] MEDS: MELATONIN 5 MG TABLETS PO PRN (21:59)
[2018-04-07] MEDS: THIAMINE HCL 100 MG TABLET (FP) PO SCH (21:59)
[2018-04-08] MEDS: NICOTINE POLACRILEX 2 MG GUM BC PRN (10:39)
[2018-04-08] MEDS: PRENATAL VITAMINS W/ FOLIC ACID TABLET (FP) PO SCH (10:39)
[2018-04-08] MEDS: hydrOXYzine PAMOATE 50 MG CAPSULE (FP) PO PRN (10:40)
[2018-04-08] MEDS: MELATONIN 5 MG TABLETS PO PRN (21:47)
[2018-04-08] MEDS: THIAMINE HCL 100 MG TABLET (FP) PO SCH (21:48)
[2018-04-08] MEDS: MIRTAZAPINE 15 MG TABLET (FP) PO SCH (21:48)
[2018-04-09] MEDS: PRENATAL VITAMINS W/ FOLIC ACID TABLET (FP) PO SCH (10:17)
[2018-04-09] MEDS: hydrOXYzine PAMOATE 50 MG CAPSULE (FP) PO PRN (10:18)
[2018-04-09] MEDS: THIAMINE HCL 100 MG TABLET (FP) PO SCH (21:45)
[2018-04-09] MEDS: MELATONIN 5 MG TABLETS PO PRN (21:45)
[2018-04-09] MEDS: MIRTAZAPINE 15 MG TABLET (FP) PO SCH (21:45)
[2018-04-10 07:25] VITALS: BP 134/74; PULSE 105; TEMP 98.2
[2018-04-10] MEDS: PRENATAL VITAMINS W/ FOLIC ACID TABLET (FP) PO SCH (09:17)
--- NOTE | 2018-04-10 11:43 | PN ---
[facility] Progress Note Note: PT COMPLETED REHAB AND DISCHARGED TODAY. PT MET WITH HIS COUNSELOR AND WAS REFERRED TO [facility] IN [place], [place] FOR CD AFTERCARE. PT STATES HE WILL CALL AND FOLLOW UP WITH A NEW PCP WITH HIS NEW INSURANCE CARD AFTER DISCHARGE HERE TODAY. PT STATE HE HAS NARCAN SPRAYS AT HOME AND IT'S WITH HIS FATHER AND DECLINED ANY NEW RX. . PT IS ALERT O X 3. DENIES S/H/I. Home Medications Medication Instructions Recorded NK [No Known Home Medication] 03/14/18 Vital Signs 04/10/18 07:24 Temperature 98.2 F Pulse Rate 105 H Respiratory 18 Rate Blood Pressure 134/74 Laboratory Tests 03/14/18 03/15/18 03/15/18 22:33 08:30 08:30 WBC 5.4 RBC 4.70 Hgb 14.4 Hct 42.0 MCV 89.3 MCH 30.7 MCHC 34.3 RDW 13.1 Plt Count 309 MPV 9.3 Sodium 139 Potassium 4.3 Chloride 102 Carbon Dioxide 29 Anion Gap 7 L BUN 10 Creatinine 1.1 Creat Clearance w eGFR > 60 Random Glucose 138 H Calcium 9.3 Total Bilirubin 0.4 AST 11 L ALT 25 Alkaline Phosphatase 64 Total Protein 7.2 Albumin 4.2 Urine Color Ltyellow Urine Appearance Clear Urine pH 6.0 Ur Specific [place] 1.012 Urine Protein Negative Urine Glucose (UA) Negative Urine Ketones Negative Urine Blood Negative Urine Nitrite Negative Urine Bilirubin Negative Urine Urobilinogen Negative Ur Leukocyte Esterase Negative RPR Titer 03/15/18 08:30 WBC RBC Hgb Hct MCV MCH MCHC RDW Plt Count MPV Sodium Potassium Chloride Carbon Dioxide Anion Gap BUN Creatinine Creat Clearance w eGFR Random Glucose Calcium Total Bilirubin AST ALT Alkaline Phosphatase Total Protein Albumin Urine Color Urine Appearance Urine pH Ur Specific [place] Urine Protein Urine Glucose (UA) Urine Ketones Urine Blood Urine Nitrite Urine Bilirubin Urine Urobilinogen Ur Leukocyte Esterase RPR Titer Nonreactive NAD MEDICALLY STABLE PLAN;DISCUSSED WITH PT TO FOLLOW UP WITH CD AFTERCARE AT [facility] RECOMMENDED TODAY, 04/10/18 @11:55 A.M. CALL AND FOLLOW UP WITH A NEW PCP 1-2 WEEKS AFTER DISCHARGE FROM REHAB FOR MEDICAL MANAGEMENT. TAKE COPIES OF LAB RESULT AND LAST VIVITROL ADMINISTRATION DOCUMENT TO [facility] REFERRAL. REMINDED PT NEXT DOSE WILL BE ON April AT [facility] IN [place], [place].
== END 2018-04-10 09:15 | disposition home or self-care (01) | DRG 772 ==
LOC: YASAS 13:11 → Y5N 17:56
PROVIDERS: ADMIT Neuromusculoskeletal Medicine & OMM; ATTEND Neuromusculoskeletal Medicine & OMM
PROC: HZ42ZZZ Group Counseling for Substance Abuse Treatment, Cognitive-Behavioral (ICD-10-PCS; principal; 2018-03-14)
DX: F11.20 Opioid dependence, uncomplicated (principal); F10.20 Alcohol dependence, uncomplicated; F13.10 Sedative, hypnotic or anxiolytic abuse, uncomplicated; F14.10 Cocaine abuse, uncomplicated; F17.210 Nicotine dependence, cigarettes, uncomplicated; F19.24 Other psychoactive substance dependence with psychoactive substance-induced mood disorder; F41.8 Other specified anxiety disorders; F32.9 Major depressive disorder, single episode, unspecified
CPT/HCPCS: 36415; 80053; 81003; 85027; 86593; J2315

== ENCOUNTER 2018-10-19 15:32 | Inpatient (IN) | payer OTHER ==
[2018-10-19 18:47] VITALS: BMI 26.4
--- NOTE | 2018-10-19 20:28 | HP ---
CIWA Score - Admission Criteria OASAS Guidelines: Admission for Medically Managed Detox: Requires at least one of the followin. CIWA greater than 12 2. Seizures within the past 24 hours 3. Delirium tremens within the past 24 hours 4. Hallucinations within the past 24 hours 5. Acute intervention needed for co occurring medical disorder 6. Acute intervention needed for co occurring psychiatric disorder 7. Severe withdrawal that cannot be handled at a lower level of care (continued vomiting, continued diarrhea, abnormal vital signs) requiring intravenous medication and/or fluids 8. Admission ROS S - HPI Chief Complaint: Seeking admission to Rehab Allergies/Adverse Reactions: Allergies Allergy/AdvReac Type Severity Reaction Status Date / Time No Known Allergies Allergy Verified 10/19/18 18:39 History of Present Illness: 28 years old male with ten years of cocaine dependence is seeking admission to Rehab. Patient reports that he is court mandated to this admission because he tested positive to cocaine during a routine probation drug test. He reports history of depression and anxiety. Denies suicidal ideation at this time Exam Limitations: No Limitations - Ebola screening Have you traveled outside of the country in the last 21 days: No Have you had contact with anyone from an Ebola affected area: No - Review of Systems Constitutional: No Symptoms Reported EENT: reports: No Symptoms Reported Respiratory: reports: No Symptoms reported Cardiac: reports: No Symptoms Reported GI: reports: No Symptoms Reported : reports: No Symptoms Reported Musculoskeletal: reports: No Symptoms Reported Integumentary: reports: No Symptoms Reported Neuro: reports: No Symptoms reported Endocrine: reports: No Symptoms Reported Hematology: reports: No Symptoms Reported Psychiatric: reports: No Sypmtoms Reported, Mood/Affect Appropiate, Orientated x3 Other Systems: Reviewed and Negative Patient History - Patient Medical History Hx Anemia: No Hx Asthma: No Hx Chronic Obstructive Pulmonary Disease (COPD): No Hx Cancer: No Hx Cardiac Disorders: No Hx Congestive Heart Failure: No Hx Hypertension: No Hx Hypercholesterolemia: No Hx Pacemaker: No HX Cerebrovascular Accident: No Hx Seizures: No Hx Diabetes: No Hx Gastrointestinal Disorders: No Hx Liver Disease: No Hx Genitourinary Disorders: No Hx Sexually Transmitted Disorders: No Hx Renal Disease (ESRD): No Hx Thyroid Disease: No Hx Human Immunodeficiency Virus (HIV): No (Negative 2019) Hx Hepatitis C: No Hx Depression: Yes (Remeron ) Hx Suicide Attempt: No Hx Bipolar Disorder: No Hx Schizophrenia: No Other Medical History: Anxiety - Atarax - Patient Surgical History Past Surgical History: No - PPD History Previous Implant?: No Documented Results: Negative w/o proof Implanted On Prior [facility] Admission?: No PPD to be Administered?: Yes - Reproductive History Patient is a Female of Child Bearing Age (11 -55 yrs old): No (Male) - Smoking Cessation Smoking history: Current every day smoker Have you smoked in the past 12 months: Yes Aproximately how many cigarettes per day: 10 Hx Chewing Tobacco Use: No Initiated information on smoking cessation: Yes 'Breaking Loose' booklet given: 10/19/18 - Substance & Tx. History Hx Alcohol Use: Yes Hx Substance Use: Yes Substance Use Type: Alcohol, Cocaine Hx Substance Use Treatment: Yes ([facility]) - Substances abused Cocaine Substance route: Inhalation Frequency: 1-3 times last 30 days Amount used: $10 Age of first use: 16 Date of last use: 10/07/18 Family Disease History - Family Disease History Family History: Denies Family Disease History: Other: Father (living, healthy), Mother (living, healthy ) Admission Physical Exam [facility] - Vital Signs Vital Signs: Vital Signs - 24 hr 10/19/18 18:37 Temperature 97.0 F L Pulse Rate 82 Respiratory 17 Rate Blood Pressure 116/75 - Physical General Appearance: Yes: Within Normal Limits HEENTM: Yes: Within Normal Limits, EOMI, Normal ENT Inspection, Normal Voice, BELINDA Respiratory: Yes: Lungs Clear, Normal Breath Sounds, No Respiratory Distress Neck: Yes: Supple Breast: Yes: Breast Exam Deferred Cardiology: Yes: Regular Rhythm, Regular Rate Abdominal: Yes: Normal Bowel Sounds, Soft Genitourinary: Yes: Within Normal Limits Back: Yes: Normal Inspection Musculoskeletal: Yes: Within Normal Limits Extremities: Yes: Normal Inspection Neurological: Yes: Within Normal Limits, Alert, Normal Mood/Affect Integumentary: Yes: Within Normal Limits Lymphatic: Yes: Within Normal Limits - Diagnostic (1) Cocaine dependence Current Visit: Yes Status: Chronic Qualifiers: Substance use status: uncomplicated Qualified Code(s): F14.20 - Cocaine dependence, uncomplicated (2) Nicotine dependence Current Visit: Yes Status: Chronic Qualifiers: Nicotine product type: cigarettes Cleared for Admission [facility] - Detox or Rehab [facility] Level of Care: Observation Bed Claeared for Rehab Admission: Yes Breathalyzer - Breathalyzer Breathalyzer: 0 Urine Drug Screen - Test Device Lot number: [id number] Expiration date: 07/07/20 - Control Is test valid?: Yes - Results Drug screen NEGATIVE: No Urine drug screen results: BZO-Benzodiazepines Inpatient Rehab Admission - Rehab Decision to Admit Inpatient rehab admission?: Yes - Initial Determination Are CD services needed?: No Free of communicable disease: Yes Not in need of hospitalization: Yes - Rehab Admission Criteria Previous failed treatment: Yes Poor recovery environment: Yes Comorbidities: Yes Lacks judgement: No Patient is meeting Inpatient Rehab admission criteria:: Yes
[2018-10-19] MEDS ORDERED: MAG HYDROX/AL HYDROX/SIMETH 30 ML UNIT-DOSE CUP PO PRN (20:36)
[2018-10-19] MEDS ORDERED: guaiFENesin 200 MG/10 ML 10 ML UNIT-DOSE CUPS PO PRN (20:36)
[2018-10-19] MEDS ORDERED: LOPERAMIDE HCL 2 MG CAPSULE PO PRN (20:36)
[2018-10-19] MEDS ORDERED: MAGNESIUM HYDROX 2400MG/30ML ORAL SUSPENSION 30 ML CUP PO PRN (20:36)
[2018-10-19] MEDS ORDERED: MAGNESIUM CITRATE 300 ML BOTTLE PO PRN (20:36)
[2018-10-19] MEDS ORDERED: P-EPHED 60MG/TRIPROLIDI 2.5MG TABLET PO PRN (20:36)
[2018-10-19] MEDS ORDERED: MENTHOL/PHENOL 1 EACH UD MM PRN (20:36)
[2018-10-19] MEDS: THIAMINE HCL 100 MG TABLET (FP) PO SCH (21:54)
[2018-10-19] MEDS: MELATONIN 5 MG TABLETS PO PRN (21:54)
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
[2018-10-20] MEDS: PRENATAL VITAMINS W/ FOLIC ACID TABLET (FP) PO SCH (10:23)
[2018-10-20] MEDS: NICOTINE 14 MG/24 HOURS TOPICAL PATCH TD SCH (10:24)
[2018-10-20] MEDS: hydrOXYzine HCL 25 MG TABLET (FP) PO PRN ×2 (11:01→21:36)
[2018-10-20 11:34] LABS: HEMATOCRIT 42.3 % (35.4-49); HEMOGLOBIN 14.2 GM/dL (11.7-16.9); MCH 30.8 pg (25.7-33.7); MCHC 33.6 g/dl (32.0-35.9); MEAN CELL VOLUME 91.5 fl (80-96); MEAN PLT VOLUME 9.4 fl (7.5-11.1); PLATELET COUNT 283 K/MM3 (134-434); RBC 4.63 M/mm3 (4.00-5.60); RDW 13.5 % (11.9-15.9); WHITE BLOOD COUNT 5.3 K/mm3 (4.0-10.0)
[2018-10-20 11:40] LABS: ALBUMIN 3.9 g/dl (3.4-5.0); BILIRUBIN,TOTAL 0.4 mg/dL (0.2-1); BLOOD UREA NITROGEN 11.9 mg/dL (7-18); CREATININE 1.1 mg/dL (0.55-1.3); POTASSIUM 4.6 mmol/L (3.5-5.1); TOT PROT 6.4 g/dl (6.4-8.2)
--- NOTE | 2018-10-20 13:46 | EKG ---
Test Reason : Blood Pressure : / mmHG Vent. Rate : 047 BPM Atrial Rate : 047 BPM P-R Int : 126 ms QRS Dur : 088 ms QT Int : 434 ms P-R-T Axes : 009 040 027 degrees QTc Int : 384 ms SINUS BRADYCARDIA INCOMPLETE RBBB NO PREVIOUS ECGS AVAILABLE Confirmed by BUTCH CARNEY MD ([id number]) on 10/20/2018 1:46:19 PM Referred By: MERLE REID Confirmed By:BUTCH CARNEY MD
[2018-10-20] MEDS: MIRTAZAPINE 15 MG TABLET (FP) PO SCH (21:35)
[2018-10-20] MEDS: THIAMINE HCL 100 MG TABLET (FP) PO SCH (21:36)
[2018-10-21] MEDS: hydrOXYzine HCL 25 MG TABLET (FP) PO PRN ×3 (10:06→22:01)
[2018-10-21] MEDS: PRENATAL VITAMINS W/ FOLIC ACID TABLET (FP) PO SCH (10:06)
[2018-10-21] MEDS: NICOTINE 14 MG/24 HOURS TOPICAL PATCH TD SCH (10:07)
[2018-10-21] MEDS: NICOTINE POLACRILEX 2 MG GUM BC PRN (16:26)
[2018-10-21 16:41] LABS: PH,URINE 8.5 (5.0-8.0); URINE APPEARANCE CLEAR; URINE BILIRUBIN NEGATIVE (NEGATIVE); URINE COLOR YELLOW; URINE GLUCOSE (UA) NEGATIVE (NEGATIVE); URINE KETONE NEGATIVE (NEGATIVE); URINE LEUK ESTERASE NEGATIVE (NEGATIVE); URINE NITRITE NEGATIVE (NEGATIVE); URINE PROTEIN NEGATIVE (NEGATIVE); URINE UROBILINOGEN 0.2 mg/dL (0.2-1.0)
[2018-10-21] MEDS: THIAMINE HCL 100 MG TABLET (FP) PO SCH (22:01)
[2018-10-21] MEDS: MIRTAZAPINE 15 MG TABLET (FP) PO SCH (22:01)
[2018-10-21] MEDS: MELATONIN 5 MG TABLETS PO PRN (22:01)
[2018-10-22] MEDS: PRENATAL VITAMINS W/ FOLIC ACID TABLET (FP) PO SCH (10:15)
[2018-10-22] MEDS: hydrOXYzine HCL 25 MG TABLET (FP) PO PRN ×2 (10:16→18:02)
[2018-10-22] MEDS: NICOTINE 14 MG/24 HOURS TOPICAL PATCH TD SCH (10:18)
[2018-10-22] MEDS: IBUPROFEN 400 MG TABLET (FP) PO PRN ×2 (10:18→18:09)
[2018-10-22] MEDS: THIAMINE HCL 100 MG TABLET (FP) PO SCH (21:47)
[2018-10-22] MEDS: MIRTAZAPINE 15 MG TABLET (FP) PO SCH (21:47)
[2018-10-22] MEDS: MELATONIN 5 MG TABLETS PO PRN (21:48)
[2018-10-23] MEDS: NICOTINE 14 MG/24 HOURS TOPICAL PATCH TD SCH (10:30)
[2018-10-23] MEDS: PRENATAL VITAMINS W/ FOLIC ACID TABLET (FP) PO SCH (10:30)
[2018-10-23] MEDS: hydrOXYzine HCL 25 MG TABLET (FP) PO PRN ×2 (10:31→17:34)
[2018-10-23] MEDS: IBUPROFEN 400 MG TABLET (FP) PO PRN ×2 (11:00→17:34)
--- NOTE | 2018-10-23 14:06 | PN ---
[facility] Progress Note Note: Pt is a 28 y/o male admitted to rehab on 10/19/18 who is currently in treatment at [place], [place]. Pt reports burning with moderate to severe pain on urination since 1-2 days. Denies any form of discharge or bleeding but reports rash around tip of penis. Denies n/v/d or abdominal pain. Pt reports he has a girlfriend and had unprotected sex a day before admission. Vital Signs - 24 hr 10/23/18 10/23/18 00:30 03:30 Respiratory 18 18 Rate Vital Signs (72 hours) 10/21/18 10/21/18 10/22/18 00:30 03:30 00:30 Temperature Pulse Rate Respiratory 18 18 18 Rate Blood Pressure 10/22/18 10/22/18 10/23/18 03:30 08:07 00:30 Temperature 98.0 F Pulse Rate 68 Respiratory 18 18 18 Rate Blood Pressure 119/67 10/23/18 03:30 Temperature Pulse Rate Respiratory 18 Rate Blood Pressure Laboratory Tests 10/20/18 10/20/18 10/20/18 08:46 08:46 08:46 WBC 5.3 RBC 4.63 Hgb 14.2 Hct 42.3 MCV 91.5 MCH 30.8 MCHC 33.6 RDW 13.5 Plt Count 283 MPV 9.4 Sodium 139 Potassium 4.6 Chloride 102 Carbon Dioxide 29 Anion Gap 7 L BUN 11.9 Creatinine 1.1 Est GFR (CKD-EPI)AfAm 104.59 Est GFR (CKD-EPI)NonAf 90.24 Random Glucose 108 H Calcium 9.0 Total Bilirubin 0.4 AST 16 ALT 27 Alkaline Phosphatase 61 Total Protein 6.4 Albumin 3.9 Urine Color Urine Appearance Urine pH Ur Specific [place] Urine Protein Urine Glucose (UA) Urine Ketones Urine Blood Urine Nitrite Urine Bilirubin Urine Urobilinogen Ur Leukocyte Esterase RPR Titer Nonreactive TB (QFT) Incubation TB Test (QFT) Nil TB Test (QFT) Mitogen TB Test (QFT) Antigen TB Test (QFT) TB Positive Criteria 10/20/18 10/21/18 08:46 16:36 WBC RBC Hgb Hct MCV MCH MCHC RDW Plt Count MPV Sodium Potassium Chloride Carbon Dioxide Anion Gap BUN Creatinine Est GFR (CKD-EPI)AfAm Est GFR (CKD-EPI)NonAf Random Glucose Calcium Total Bilirubin AST ALT Alkaline Phosphatase Total Protein Albumin Urine Color Yellow Urine Appearance Clear Urine pH 8.5 H D Ur Specific [place] 1.010 Urine Protein Negative Urine Glucose (UA) Negative Urine Ketones Negative Urine Blood Negative Urine Nitrite Negative Urine Bilirubin Negative Urine Urobilinogen 0.2 Ur Leukocyte Esterase Negative RPR Titer TB (QFT) Incubation TB Test (QFT) Nil 0.03 TB Test (QFT) Mitogen 5.80 TB Test (QFT) Antigen 0.03 TB Test (QFT) Negative TB Positive Criteria Admitting labs wnl A/P pain on urination considering tx for symptom management with bactrim ds 1 tab po bid 3 days then re-evaluate but will hold plan till pt sees the Resident about the rash. Plan:Repeat UA today will order UC; Chlam/Trich/Gono tests Discussed pt's case with Dr. Alcaraz(Resident) who will see patient for further assessment/treatment. Pt was seen by Resident Dr. Alcaraz who stated he spoke to pt and pt declined "rash" examination. P.S:Pt is on vivitrol and next dose is due this week per Trisha Rdz NP. Pt is in treatment in [facility]. Repeat Drug screen ordered today for restart evaluation.
[2018-10-23 17:42] LABS: PH,URINE 7.5 (5.0-8.0); URINE APPEARANCE CLEAR; URINE BILIRUBIN NEGATIVE (NEGATIVE); URINE COLOR YELLOW; URINE GLUCOSE (UA) NEGATIVE (NEGATIVE); URINE KETONE NEGATIVE (NEGATIVE); URINE LEUK ESTERASE NEGATIVE (NEGATIVE); URINE NITRITE NEGATIVE (NEGATIVE); URINE PROTEIN NEGATIVE (NEGATIVE); URINE UROBILINOGEN 0.2 mg/dL (0.2-1.0)
[2018-10-23] MEDS: THIAMINE HCL 100 MG TABLET (FP) PO SCH (21:46)
[2018-10-23] MEDS: MIRTAZAPINE 15 MG TABLET (FP) PO SCH (21:46)
[2018-10-24] MEDS: IBUPROFEN 400 MG TABLET (FP) PO PRN ×2 (07:54→21:36)
[2018-10-24] MEDS: hydrOXYzine HCL 25 MG TABLET (FP) PO PRN ×2 (10:37→21:35)
[2018-10-24] MEDS: NICOTINE 14 MG/24 HOURS TOPICAL PATCH TD SCH (10:37)
[2018-10-24] MEDS: PRENATAL VITAMINS W/ FOLIC ACID TABLET (FP) PO SCH (10:37)
[2018-10-24] MEDS: NICOTINE POLACRILEX 2 MG GUM BC PRN (12:47)
--- NOTE | 2018-10-24 13:24 | PN ---
S Progress Note Note: Pt still c/o pain on urination today. reports scale of 8/10 this morning but has decreased to 3/10 by this afternoon with hydration. Vital Signs (72 hours) 10/22/18 10/22/18 10/22/18 00:30 03:30 08:07 Temperature 98.0 F Pulse Rate 68 Respiratory 18 18 18 Rate Blood Pressure 119/67 10/23/18 10/23/18 10/23/18 00:30 03:30 10:00 Temperature Pulse Rate 65 Respiratory 18 18 Rate Blood Pressure 106/62 10/24/18 10/24/18 00:30 03:30 Temperature Pulse Rate Respiratory 18 18 Rate Blood Pressure D/w pt Chlam/Gono/Trich Test test ordered today to r/o std. Pt is agreeable to poc
[2018-10-24] MEDS: MIRTAZAPINE 15 MG TABLET (FP) PO SCH (21:35)
[2018-10-24] MEDS: THIAMINE HCL 100 MG TABLET (FP) PO SCH (21:35)
[2018-10-25] MEDS: NICOTINE 14 MG/24 HOURS TOPICAL PATCH TD SCH (10:53)
[2018-10-25] MEDS: PRENATAL VITAMINS W/ FOLIC ACID TABLET (FP) PO SCH (10:53)
[2018-10-25] MEDS: IBUPROFEN 400 MG TABLET (FP) PO PRN ×2 (10:54→16:54)
[2018-10-25] MEDS: hydrOXYzine HCL 25 MG TABLET (FP) PO PRN ×2 (10:54→22:03)
[2018-10-25] MEDS: ACETAMINOPHEN 325 MG TABLET (FP) PO PRN (19:09)
[2018-10-25] MEDS: THIAMINE HCL 100 MG TABLET (FP) PO SCH (22:03)
[2018-10-25] MEDS: MIRTAZAPINE 15 MG TABLET (FP) PO SCH (22:03)
[2018-10-25] MEDS: MELATONIN 5 MG TABLETS PO PRN (22:03)
[2018-10-26] MEDS: ACETAMINOPHEN 325 MG TABLET (FP) PO PRN ×2 (07:50→17:33)
[2018-10-26] MEDS: IBUPROFEN 400 MG TABLET (FP) PO PRN ×2 (11:23→21:51)
[2018-10-26] MEDS: hydrOXYzine HCL 25 MG TABLET (FP) PO PRN ×2 (11:23→21:51)
[2018-10-26] MEDS: PRENATAL VITAMINS W/ FOLIC ACID TABLET (FP) PO SCH (11:24)
[2018-10-26] MEDS: NICOTINE 14 MG/24 HOURS TOPICAL PATCH TD SCH (11:25)
--- NOTE | 2018-10-26 12:25 | PN ---
[facility] Progress Note Note: Pt is still c/o pain on urination and also when not urinating which is new added symptom starting last night. Pt rates last night at 7/10 and current pain is 9/10. Pt currently denies penile rash as earlier stated on 10/23/18 but states "it's a little red". Pt provides inconsistency to his symptoms some of the times. Pt did not think it was necessary for the Resident Dr. Alcaraz who consulted with him on 09/22/18 to examine rash and also declined possible antifugal cream he suggested. Pt was given same offer today but he declined stating "It is not necessary". Pt desires to be given antibiotics stating "I might have UTI. Pt reported today he spoke to his girlfriend yesterday who told him she has UTI. Pt is concerned and anxious. Pt denies any abdominal pain, n/v /d. Denies chills or fever. Previous tests UA x 1 and RPR were normal. Sent specimen for Chlamydia/Gono./Trich test and results pending. Vital Signs - 24 hr 10/26/18 10/26/18 10/26/18 00:30 03:30 08:25 Temperature 97.4 F L Pulse Rate 77 Respiratory 18 18 18 Rate Blood Pressure 112/77 10/26/18 11:46 Temperature 98.2 F Pulse Rate 90 Respiratory 16 Rate Blood Pressure 120/65 Laboratory Tests 10/20/18 10/20/18 10/20/18 08:46 08:46 08:46 WBC 5.3 RBC 4.63 Hgb 14.2 Hct 42.3 MCV 91.5 MCH 30.8 MCHC 33.6 RDW 13.5 Plt Count 283 MPV 9.4 Sodium 139 Potassium 4.6 Chloride 102 Carbon Dioxide 29 Anion Gap 7 L BUN 11.9 Creatinine 1.1 Est GFR (CKD-EPI)AfAm 104.59 Est GFR (CKD-EPI)NonAf 90.24 Random Glucose 108 H Calcium 9.0 Total Bilirubin 0.4 AST 16 ALT 27 Alkaline Phosphatase 61 Total Protein 6.4 Albumin 3.9 Urine Color Urine Appearance Urine pH Ur Specific [place] Urine Protein Urine Glucose (UA) Urine Ketones Urine Blood Urine Nitrite Urine Bilirubin Urine Urobilinogen Ur Leukocyte Esterase RPR Titer Nonreactive TB (QFT) Incubation TB Test (QFT) Nil TB Test (QFT) Mitogen TB Test (QFT) Antigen TB Test (QFT) TB Positive Criteria 10/20/18 10/21/18 10/23/18 08:46 16:36 13:50 WBC RBC Hgb Hct MCV MCH MCHC RDW Plt Count MPV Sodium Potassium Chloride Carbon Dioxide Anion Gap BUN Creatinine Est GFR (CKD-EPI)AfAm Est GFR (CKD-EPI)NonAf Random Glucose Calcium Total Bilirubin AST ALT Alkaline Phosphatase Total Protein Albumin Urine Color Yellow Yellow Urine Appearance Clear Clear Urine pH 8.5 H D 7.5 Ur Specific [place] 1.010 1.015 Urine Protein Negative Negative Urine Glucose (UA) Negative Negative Urine Ketones Negative Negative Urine Blood Negative Negative Urine Nitrite Negative Negative Urine Bilirubin Negative Negative Urine Urobilinogen 0.2 0.2 Ur Leukocyte Esterase Negative Negative RPR Titer TB (QFT) Incubation TB Test (QFT) Nil 0.03 TB Test (QFT) Mitogen 5.80 TB Test (QFT) Antigen 0.03 TB Test (QFT) Negative TB Positive Criteria alert o x 3 oob ambulating with steady gait cardiac:s1 s2, rrr Lungs:cta, sheila abdomen:soft,+bs,nt,flat A/P Pain/Burning on urination symtomatic tx with bactrim ds 1 tab po bid x 7 days Follow up with STD test as above called [facility] ER and spoke to Resident Dr. Mcdonald today for transfer to ER. D/w Pt but prefers to start Abx here if possible and wait for Chlam/Gono/Trich results that's pending for now. Agreeable to be referred to [facility] ER if symptom not resolved.
[2018-10-26] MEDS ORDERED: SULFAMETHOXAZOLE/TRIMETHOPRIM 800MG/160MG D.S. TABLET PO ONE (12:30)
[2018-10-26] MEDS: MIRTAZAPINE 15 MG TABLET (FP) PO SCH (21:50)
[2018-10-26] MEDS: THIAMINE HCL 100 MG TABLET (FP) PO SCH (21:50)
[2018-10-26] MEDS: SULFAMETHOXAZOLE/TRIMETHOPRIM 800MG/160MG D.S. TABLET PO SCH (21:50)
[2018-10-27] MEDS ORDERED: NALTREXONE MICROSPHERES (VIVITROL) 380 MG DISP.SYRIN IM ONE (10:00)
[2018-10-27] MEDS: PRENATAL VITAMINS W/ FOLIC ACID TABLET (FP) PO SCH (10:36)
[2018-10-27] MEDS: SULFAMETHOXAZOLE/TRIMETHOPRIM 800MG/160MG D.S. TABLET PO SCH ×2 (10:36→21:57)
[2018-10-27] MEDS: NICOTINE 14 MG/24 HOURS TOPICAL PATCH TD SCH (10:36)
[2018-10-27] MEDS: IBUPROFEN 400 MG TABLET (FP) PO PRN (10:38)
[2018-10-27] MEDS: hydrOXYzine HCL 25 MG TABLET (FP) PO PRN ×2 (10:39→21:58)
--- NOTE | 2018-10-27 16:59 | PN ---
[facility] Progress Note Note: Pt Pt received his dose of Vivitrol 380 mg inj I.M today. Pt will follow up at [facility] for subsequent doses after discharge from rehab. Pt reports urinary symptom relief after starting bactrim ds yesterday. Vital Signs - 24 hr 10/27/18 10/27/18 10/27/18 00:30 03:30 07:15 Respiratory 18 18 18 Rate Laboratory Tests 10/20/18 10/20/18 10/20/18 08:46 08:46 08:46 WBC 5.3 RBC 4.63 Hgb 14.2 Hct 42.3 MCV 91.5 MCH 30.8 MCHC 33.6 RDW 13.5 Plt Count 283 MPV 9.4 Sodium 139 Potassium 4.6 Chloride 102 Carbon Dioxide 29 Anion Gap 7 L BUN 11.9 Creatinine 1.1 Est GFR (CKD-EPI)AfAm 104.59 Est GFR (CKD-EPI)NonAf 90.24 Random Glucose 108 H Calcium 9.0 Total Bilirubin 0.4 AST 16 ALT 27 Alkaline Phosphatase 61 Total Protein 6.4 Albumin 3.9 Urine Color Urine Appearance Urine pH Ur Specific [place] Urine Protein Urine Glucose (UA) Urine Ketones Urine Blood Urine Nitrite Urine Bilirubin Urine Urobilinogen Ur Leukocyte Esterase RPR Titer Nonreactive C. trachomatis (DIRK) N.gonorrhoeae DNA (DIRK) T. vaginalis (DIRK) TB (QFT) Incubation TB Test (QFT) Nil TB Test (QFT) Mitogen TB Test (QFT) Antigen TB Test (QFT) TB Positive Criteria 10/20/18 10/21/18 10/23/18 08:46 16:36 13:50 WBC RBC Hgb Hct MCV MCH MCHC RDW Plt Count MPV Sodium Potassium Chloride Carbon Dioxide Anion Gap BUN Creatinine Est GFR (CKD-EPI)AfAm Est GFR (CKD-EPI)NonAf Random Glucose Calcium Total Bilirubin AST ALT Alkaline Phosphatase Total Protein Albumin Urine Color Yellow Yellow Urine Appearance Clear Clear Urine pH 8.5 H D 7.5 Ur Specific [place] 1.010 1.015 Urine Protein Negative Negative Urine Glucose (UA) Negative Negative Urine Ketones Negative Negative Urine Blood Negative Negative Urine Nitrite Negative Negative Urine Bilirubin Negative Negative Urine Urobilinogen 0.2 0.2 Ur Leukocyte Esterase Negative Negative RPR Titer C. trachomatis (DIRK) N.gonorrhoeae DNA (DIRK) T. vaginalis (DIRK) TB (QFT) Incubation TB Test (QFT) Nil 0.03 TB Test (QFT) Mitogen 5.80 TB Test (QFT) Antigen 0.03 TB Test (QFT) Negative TB Positive Criteria 10/24/18 15:00 WBC RBC Hgb Hct MCV MCH MCHC RDW Plt Count MPV Sodium Potassium Chloride Carbon Dioxide Anion Gap BUN Creatinine Est GFR (CKD-EPI)AfAm Est GFR (CKD-EPI)NonAf Random Glucose Calcium Total Bilirubin AST ALT Alkaline Phosphatase Total Protein Albumin Urine Color Urine Appearance Urine pH Ur Specific [place] Urine Protein Urine Glucose (UA) Urine Ketones Urine Blood Urine Nitrite Urine Bilirubin Urine Urobilinogen Ur Leukocyte Esterase RPR Titer C. trachomatis (DIRK) Negative N.gonorrhoeae DNA (DIRK) Negative T. vaginalis (DIRK) Negative TB (QFT) Incubation TB Test (QFT) Nil TB Test (QFT) Mitogen TB Test (QFT) Antigen TB Test (QFT) TB Positive Criteria All STD test is negative.
[2018-10-27] MEDS: THIAMINE HCL 100 MG TABLET (FP) PO SCH (21:56)
[2018-10-27] MEDS: MIRTAZAPINE 15 MG TABLET (FP) PO SCH (21:57)
[2018-10-27] MEDS: MELATONIN 5 MG TABLETS PO PRN (21:57)
[2018-10-28] MEDS: SULFAMETHOXAZOLE/TRIMETHOPRIM 800MG/160MG D.S. TABLET PO SCH ×2 (10:04→21:58)
[2018-10-28] MEDS: hydrOXYzine HCL 25 MG TABLET (FP) PO PRN ×2 (10:04→21:59)
[2018-10-28] MEDS: NICOTINE 14 MG/24 HOURS TOPICAL PATCH TD SCH (10:04)
[2018-10-28] MEDS: PRENATAL VITAMINS W/ FOLIC ACID TABLET (FP) PO SCH (10:04)
[2018-10-28] MEDS: MIRTAZAPINE 15 MG TABLET (FP) PO SCH (21:58)
[2018-10-28] MEDS: THIAMINE HCL 100 MG TABLET (FP) PO SCH (21:58)
[2018-10-29] MEDS: SULFAMETHOXAZOLE/TRIMETHOPRIM 800MG/160MG D.S. TABLET PO SCH ×2 (10:21→22:06)
[2018-10-29] MEDS: hydrOXYzine HCL 25 MG TABLET (FP) PO PRN ×2 (10:21→22:07)
[2018-10-29] MEDS: NICOTINE 14 MG/24 HOURS TOPICAL PATCH TD SCH (10:21)
[2018-10-29] MEDS: PRENATAL VITAMINS W/ FOLIC ACID TABLET (FP) PO SCH (10:21)
[2018-10-29] MEDS: IBUPROFEN 400 MG TABLET (FP) PO PRN (10:22)
[2018-10-29] MEDS: MIRTAZAPINE 15 MG TABLET (FP) PO SCH (22:06)
[2018-10-29] MEDS: THIAMINE HCL 100 MG TABLET (FP) PO SCH (22:06)
[2018-10-30] MEDS: NICOTINE 14 MG/24 HOURS TOPICAL PATCH TD SCH (10:35)
[2018-10-30] MEDS: PRENATAL VITAMINS W/ FOLIC ACID TABLET (FP) PO SCH (10:40)
[2018-10-30] MEDS: hydrOXYzine HCL 25 MG TABLET (FP) PO PRN ×2 (10:40→21:48)
[2018-10-30] MEDS: SULFAMETHOXAZOLE/TRIMETHOPRIM 800MG/160MG D.S. TABLET PO SCH ×2 (10:40→21:47)
[2018-10-30] MEDS: IBUPROFEN 400 MG TABLET (FP) PO PRN (13:05)
[2018-10-30] MEDS: THIAMINE HCL 100 MG TABLET (FP) PO SCH (21:47)
[2018-10-30] MEDS: MIRTAZAPINE 15 MG TABLET (FP) PO SCH (21:47)
[2018-10-30] MEDS: MELATONIN 5 MG TABLETS PO PRN (21:49)
--- NOTE | 2018-10-30 22:23 | PN ---
[facility] Progress Note Note: Pt reports pain on urination resolved 95% and feels better. Reports no more redness to penile area. Vital Signs - 24 hr 10/30/18 10/30/18 10/30/18 00:30 03:30 07:18 Respiratory 18 18 18 Rate Laboratory Tests 10/20/18 10/20/18 10/20/18 08:46 08:46 08:46 WBC 5.3 RBC 4.63 Hgb 14.2 Hct 42.3 MCV 91.5 MCH 30.8 MCHC 33.6 RDW 13.5 Plt Count 283 MPV 9.4 Sodium 139 Potassium 4.6 Chloride 102 Carbon Dioxide 29 Anion Gap 7 L BUN 11.9 Creatinine 1.1 Est GFR (CKD-EPI)AfAm 104.59 Est GFR (CKD-EPI)NonAf 90.24 Random Glucose 108 H Calcium 9.0 Total Bilirubin 0.4 AST 16 ALT 27 Alkaline Phosphatase 61 Total Protein 6.4 Albumin 3.9 Urine Color Urine Appearance Urine pH Ur Specific [place] Urine Protein Urine Glucose (UA) Urine Ketones Urine Blood Urine Nitrite Urine Bilirubin Urine Urobilinogen Ur Leukocyte Esterase RPR Titer Nonreactive C. trachomatis (DIRK) N.gonorrhoeae DNA (DIRK) T. vaginalis (DIRK) TB (QFT) Incubation TB Test (QFT) Nil TB Test (QFT) Mitogen TB Test (QFT) Antigen TB Test (QFT) TB Positive Criteria 10/20/18 10/21/18 10/23/18 08:46 16:36 13:50 WBC RBC Hgb Hct MCV MCH MCHC RDW Plt Count MPV Sodium Potassium Chloride Carbon Dioxide Anion Gap BUN Creatinine Est GFR (CKD-EPI)AfAm Est GFR (CKD-EPI)NonAf Random Glucose Calcium Total Bilirubin AST ALT Alkaline Phosphatase Total Protein Albumin Urine Color Yellow Yellow Urine Appearance Clear Clear Urine pH 8.5 H D 7.5 Ur Specific [place] 1.010 1.015 Urine Protein Negative Negative Urine Glucose (UA) Negative Negative Urine Ketones Negative Negative Urine Blood Negative Negative Urine Nitrite Negative Negative Urine Bilirubin Negative Negative Urine Urobilinogen 0.2 0.2 Ur Leukocyte Esterase Negative Negative RPR Titer C. trachomatis (DIRK) N.gonorrhoeae DNA (DIRK) T. vaginalis (DIRK) TB (QFT) Incubation TB Test (QFT) Nil 0.03 TB Test (QFT) Mitogen 5.80 TB Test (QFT) Antigen 0.03 TB Test (QFT) Negative TB Positive Criteria 10/24/18 15:00 WBC RBC Hgb Hct MCV MCH MCHC RDW Plt Count MPV Sodium Potassium Chloride Carbon Dioxide Anion Gap BUN Creatinine Est GFR (CKD-EPI)AfAm Est GFR (CKD-EPI)NonAf Random Glucose Calcium Total Bilirubin AST ALT Alkaline Phosphatase Total Protein Albumin Urine Color Urine Appearance Urine pH Ur Specific [place] Urine Protein Urine Glucose (UA) Urine Ketones Urine Blood Urine Nitrite Urine Bilirubin Urine Urobilinogen Ur Leukocyte Esterase RPR Titer C. trachomatis (DIRK) Negative N.gonorrhoeae DNA (DIRK) Negative T. vaginalis (DIRK) Negative TB (QFT) Incubation TB Test (QFT) Nil TB Test (QFT) Mitogen TB Test (QFT) Antigen TB Test (QFT) TB Positive Criteria Discussed all STD results with pt. Pt felt relieved and less anxious. Will complete Abx therapy course of 7 days.
[2018-10-31] MEDS: NICOTINE 14 MG/24 HOURS TOPICAL PATCH TD SCH (10:37)
[2018-10-31] MEDS: PRENATAL VITAMINS W/ FOLIC ACID TABLET (FP) PO SCH (10:37)
[2018-10-31] MEDS: SULFAMETHOXAZOLE/TRIMETHOPRIM 800MG/160MG D.S. TABLET PO SCH ×2 (10:37→21:37)
[2018-10-31] MEDS: hydrOXYzine HCL 25 MG TABLET (FP) PO PRN ×2 (10:39→21:37)
[2018-10-31] MEDS: IBUPROFEN 400 MG TABLET (FP) PO PRN (17:08)
[2018-10-31] MEDS: MIRTAZAPINE 15 MG TABLET (FP) PO SCH (21:37)
[2018-10-31] MEDS: MELATONIN 5 MG TABLETS PO PRN (21:38)
[2018-10-31] MEDS: THIAMINE HCL 100 MG TABLET (FP) PO SCH (21:38)
[2018-11-01] MEDS: hydrOXYzine HCL 25 MG TABLET (FP) PO PRN ×2 (10:39→21:43)
[2018-11-01] MEDS: SULFAMETHOXAZOLE/TRIMETHOPRIM 800MG/160MG D.S. TABLET PO SCH ×2 (10:41→21:42)
[2018-11-01] MEDS: NICOTINE 14 MG/24 HOURS TOPICAL PATCH TD SCH (10:41)
[2018-11-01] MEDS: PRENATAL VITAMINS W/ FOLIC ACID TABLET (FP) PO SCH (10:41)
[2018-11-01] MEDS: NICOTINE POLACRILEX 2 MG GUM BC PRN (10:42)
--- NOTE | 2018-11-01 13:48 | PN ---
[facility] Progress Note Note: Patient is scheduled for discharge tomorrow. Script for 30 days supply of Remeron 15 mg/hs will be electronically transmitted to [facility] at [address] [place] [address]
[2018-11-01] MEDS: MIRTAZAPINE 15 MG TABLET (FP) PO SCH (21:42)
[2018-11-01] MEDS: THIAMINE HCL 100 MG TABLET (FP) PO SCH (21:42)
[2018-11-01] MEDS: MELATONIN 5 MG TABLETS PO PRN (21:43)
[2018-11-02 07:39] VITALS: BP 143/76; PULSE 122; TEMP 98.1
--- NOTE | 2018-11-02 15:38 | DS ---
[facility] Rehab Discharge Summary - [facility] Rehab Discharge Summary Admission Date: 10/19/18 Discharge Date: 11/02/18 - History Present History: Cocaine dependence, Sedative dependence Additional Comments: Ptis a 28 y/o male admitted to rehab and discharged today after completion of treatment. pt was referred from [facility] where he will be returning. Pertinent Past History: Mood disorder - Discharge Physical Exam Vital Signs: Vital Signs Temperature 98.1 F 11/02/18 07:39 Pulse Rate 122 H 11/02/18 07:39 Respiratory Rate 18 11/02/18 07:39 Blood Pressure 143/76 11/02/18 07:39 O2 Sat by Pulse Oximetry (%) General:Alert o x 3 Nad oob ambulating with steady gait Heent:Normocephalic,eomi,radha,hearing normal Cardiac:s1 s2,rrr Lungs:cta,sheila. Abdomen:soft,+bs,nt,nd Extremities/Skin:No edema,no cyanosis,full ROM;skin intact. Pertinent Admission Physical Exam Findings: Laboratory Tests 10/20/18 10/20/18 10/20/18 08:46 08:46 08:46 WBC 5.3 RBC 4.63 Hgb 14.2 Hct 42.3 MCV 91.5 MCH 30.8 MCHC 33.6 RDW 13.5 Plt Count 283 MPV 9.4 Sodium 139 Potassium 4.6 Chloride 102 Carbon Dioxide 29 Anion Gap 7 L BUN 11.9 Creatinine 1.1 Est GFR (CKD-EPI)AfAm 104.59 Est GFR (CKD-EPI)NonAf 90.24 Random Glucose 108 H Calcium 9.0 Total Bilirubin 0.4 AST 16 ALT 27 Alkaline Phosphatase 61 Total Protein 6.4 Albumin 3.9 Urine Color Urine Appearance Urine pH Ur Specific [place] Urine Protein Urine Glucose (UA) Urine Ketones Urine Blood Urine Nitrite Urine Bilirubin Urine Urobilinogen Ur Leukocyte Esterase RPR Titer Nonreactive C. trachomatis (DIRK) N.gonorrhoeae DNA (DIRK) T. vaginalis (DIRK) TB (QFT) Incubation TB Test (QFT) Nil TB Test (QFT) Mitogen TB Test (QFT) Antigen TB Test (QFT) TB Positive Criteria 10/20/18 10/21/18 10/23/18 08:46 16:36 13:50 WBC RBC Hgb Hct MCV MCH MCHC RDW Plt Count MPV Sodium Potassium Chloride Carbon Dioxide Anion Gap BUN Creatinine Est GFR (CKD-EPI)AfAm Est GFR (CKD-EPI)NonAf Random Glucose Calcium Total Bilirubin AST ALT Alkaline Phosphatase Total Protein Albumin Urine Color Yellow Yellow Urine Appearance Clear Clear Urine pH 8.5 H D 7.5 Ur Specific [place] 1.010 1.015 Urine Protein Negative Negative Urine Glucose (UA) Negative Negative Urine Ketones Negative Negative Urine Blood Negative Negative Urine Nitrite Negative Negative Urine Bilirubin Negative Negative Urine Urobilinogen 0.2 0.2 Ur Leukocyte Esterase Negative Negative RPR Titer C. trachomatis (DIRK) N.gonorrhoeae DNA (DIRK) T. vaginalis (DIRK) TB (QFT) Incubation TB Test (QFT) Nil 0.03 TB Test (QFT) Mitogen 5.80 TB Test (QFT) Antigen 0.03 TB Test (QFT) Negative TB Positive Criteria 10/24/18 15:00 WBC RBC Hgb Hct MCV MCH MCHC RDW Plt Count MPV Sodium Potassium Chloride Carbon Dioxide Anion Gap BUN Creatinine Est GFR (CKD-EPI)AfAm Est GFR (CKD-EPI)NonAf Random Glucose Calcium Total Bilirubin AST ALT Alkaline Phosphatase Total Protein Albumin Urine Color Urine Appearance Urine pH Ur Specific [place] Urine Protein Urine Glucose (UA) Urine Ketones Urine Blood Urine Nitrite Urine Bilirubin Urine Urobilinogen Ur Leukocyte Esterase RPR Titer C. trachomatis (DIRK) Negative N.gonorrhoeae DNA (DIRK) Negative T. vaginalis (DIRK) Negative TB (QFT) Incubation TB Test (QFT) Nil TB Test (QFT) Mitogen TB Test (QFT) Antigen TB Test (QFT) TB Positive Criteria - Treatment Discharge Condition: Discharge condition good Hospital Course: Rehabilitated safely and Responded well. Accepted CD aftercare referral - Medication Discharge Medications: Ambulatory Orders hydrOXYzine HCL [Atarax -] 50 mg PO QID PRN 10/19/18 Mirtazapine [Remeron -] 15 mg PO HS #30 tablet 11/01/18 - Medication-Assisted Treatment (MAT) Medication-Assisted Treatment (MAT): Yes Medication Prescribed: Vivitrol (inj) MAT Follow-up Referral: [facility], [place], [place] Last dose of Vivitrol 380 mg inj. I.M given on 10/27/18 - Discharge Instructions Diet, activity, other medical instructions: Diet:Regular Activity: ood, ad priscila Other medical instructions:follow up with CD aftercare at [place], [place] follow up with PMD within 1-2 weeks after discharge for medical management. - Diagnosis (1) Alcohol dependence Status: Chronic Qualifiers: Substance use status: uncomplicated Qualified Code(s): F10.20 - Alcohol dependence, uncomplicated (2) Cocaine dependence Status: Chronic Qualifiers: Substance use status: uncomplicated Qualified Code(s): F14.20 - Cocaine dependence, uncomplicated (3) Nicotine dependence Status: Chronic Qualifiers: Nicotine product type: cigarettes Substance use status: uncomplicated Qualified Code(s): F17.210 - Nicotine dependence, cigarettes, uncomplicated - Follow-up Referral Minutes to complete discharge: 20 - AMA Did Patient Leave Against Medical Advice: No Additional Comments: pt reminded to follow up with next dose of Vivitrol inj. with provider at [facility], [facility], Trisha Rdz NP. Pt also states he has own primary care provider for medical management and will follow up. No name of PMD indicated at this time.
== END 2018-11-02 08:35 | disposition home or self-care (01) | DRG 772 ==
LOC: YASAS 15:32 → Y5N 21:05
PROVIDERS: ADMIT Neuromusculoskeletal Medicine & OMM; ATTEND Neuromusculoskeletal Medicine & OMM
PROC: HZ42ZZZ Group Counseling for Substance Abuse Treatment, Cognitive-Behavioral (ICD-10-PCS; principal; 2018-10-19)
DX: F10.230 Alcohol dependence with withdrawal, uncomplicated (principal); F14.20 Cocaine dependence, uncomplicated; F17.210 Nicotine dependence, cigarettes, uncomplicated; F32.9 Major depressive disorder, single episode, unspecified; F41.9 Anxiety disorder, unspecified; R30.0 Dysuria
CPT/HCPCS: 36415; 80053; 81003; 85027; 86480; 86593; 87491; 87591; 87661; 93005; 93010; J2315

== ENCOUNTER 2018-11-02 16:45 | Inpatient (IN) | payer OTHER ==
[2018-11-02 17:51] VITALS: BMI 26.7
[2018-11-02] MEDS ORDERED: guaiFENesin 200 MG/10 ML 10 ML UNIT-DOSE CUPS PO PRN (20:43)
[2018-11-02] MEDS ORDERED: P-EPHED 60MG/TRIPROLIDI 2.5MG TABLET PO PRN (20:43)
[2018-11-02] MEDS ORDERED: MAGNESIUM CITRATE 300 ML BOTTLE PO PRN (20:43)
[2018-11-02] MEDS ORDERED: MENTHOL/PHENOL 1 EACH UD MM PRN (20:43)
[2018-11-02] MEDS ORDERED: MAG HYDROX/AL HYDROX/SIMETH 30 ML UNIT-DOSE CUP PO PRN (20:43)
[2018-11-02] MEDS ORDERED: hydrOXYzine PAMOATE 25 MG CAPSULE (FP) PO PRN (20:43)
[2018-11-02] MEDS ORDERED: LOPERAMIDE HCL 2 MG CAPSULE PO PRN (20:43)
[2018-11-02] MEDS ORDERED: IBUPROFEN 400 MG TABLET (FP) PO PRN (20:43)
[2018-11-02] MEDS ORDERED: MAGNESIUM HYDROX 2400MG/30ML ORAL SUSPENSION 30 ML CUP PO PRN (20:43)
[2018-11-02] MEDS ORDERED: NICOTINE POLACRILEX 4 MG GUM BC PRN (20:43)
--- NOTE | 2018-11-02 20:43 | HP ---
[facility] Rehab Assess/Revision - Admission History Date of Admission to Rehab: 11/02/18 - Vital signs Vital Signs: Vital Signs Period Temp Pulse Resp BP Sys/Hood Pulse Ox Last 24 Hr 98.0 F 108 16 157/84 - Findings Detox History & Physical reviewed: Yes Concur with findings: Yes (Pt was admitted to rehab on 10/[address]. Pt completed and l) Comments/Additional Findings: Pt completed rehab and left this morning. Pt went to court office today and was asked to return to rehab by the court system for unclear reasons. Pt contacted storeroom supervisor who will sort things out in the morning to see if pt needs to complete another 2 weeks of rehab Inpatient Rehab Admission - Rehab Decision to Admit Inpatient rehab admission?: Yes - Initial Determination Are CD services needed?: Yes Free of communicable disease: Yes Not in need of hospitalization: Yes - Rehab Admission Criteria Previous failed treatment: Yes Poor recovery environment: Yes Comorbidities: Yes Lacks judgement: Yes Patient is meeting Inpatient Rehab admission criteria:: Yes (cocaine use disorder- last use 3 weeks ago)
[2018-11-02] MEDS: THIAMINE HCL 100 MG TABLET (FP) PO SCH (21:29)
[2018-11-02] MEDS: MELATONIN 5 MG TABLETS PO PRN (21:30)
[2018-11-02] MEDS: MIRTAZAPINE 15 MG TABLET (FP) PO SCH (21:30)
[2018-11-03] MEDS: hydrOXYzine PAMOATE 25 MG CAPSULE (FP) PO PRN ×2 (09:13→15:23)
[2018-11-03] MEDS: PRENATAL VITAMINS W/ FOLIC ACID TABLET (FP) PO SCH (09:13)
[2018-11-03] MEDS: THIAMINE HCL 100 MG TABLET (FP) PO SCH (21:10)
[2018-11-03] MEDS: MELATONIN 5 MG TABLETS PO PRN (21:10)
[2018-11-03] MEDS: MIRTAZAPINE 15 MG TABLET (FP) PO SCH (21:10)
[2018-11-04] MEDS: PRENATAL VITAMINS W/ FOLIC ACID TABLET (FP) PO SCH (10:02)
[2018-11-04] MEDS: hydrOXYzine PAMOATE 25 MG CAPSULE (FP) PO PRN (10:03)
[2018-11-04] MEDS: MIRTAZAPINE 15 MG TABLET (FP) PO SCH (21:40)
[2018-11-04] MEDS: MELATONIN 5 MG TABLETS PO PRN (21:41)
[2018-11-04] MEDS: THIAMINE HCL 100 MG TABLET (FP) PO SCH (21:41)
[2018-11-05] MEDS: PRENATAL VITAMINS W/ FOLIC ACID TABLET (FP) PO SCH (09:57)
[2018-11-05] MEDS: hydrOXYzine PAMOATE 25 MG CAPSULE (FP) PO PRN (09:58)
[2018-11-05] MEDS: THIAMINE HCL 100 MG TABLET (FP) PO SCH (21:19)
[2018-11-05] MEDS: MELATONIN 5 MG TABLETS PO PRN (21:19)
[2018-11-05] MEDS: MIRTAZAPINE 15 MG TABLET (FP) PO SCH (21:19)
[2018-11-06] MEDS: hydrOXYzine PAMOATE 25 MG CAPSULE (FP) PO PRN (10:01)
[2018-11-06] MEDS: PRENATAL VITAMINS W/ FOLIC ACID TABLET (FP) PO SCH (10:01)
--- NOTE | 2018-11-06 11:56 | CONSULT ---
[facility] Psychiatric Consult - Data Date of interview: 11/06/18 Admission source: Court mandated Psychiatric History: Patient was recently seen by ALEXA Andrade on 10/20/18 while on 5N and he was prescribed Remeron 15 mg/hs and Vistaril 50 mg/q 4hrs prn. He was discharged on 11/02/18 and he was referred back by the court the same day for readmission. Continue Remeron 15 mg/hs ordered by Dr Reyes and Change Vistaril back to 50 mg po Q 4hrs prn for anxiety
[2018-11-06] MEDS: THIAMINE HCL 100 MG TABLET (FP) PO SCH (21:34)
[2018-11-06] MEDS: MELATONIN 5 MG TABLETS PO PRN (21:35)
[2018-11-06] MEDS: MIRTAZAPINE 15 MG TABLET (FP) PO SCH (21:35)
[2018-11-07] MEDS: hydrOXYzine PAMOATE 50 MG CAPSULE (FP) PO PRN ×2 (10:18→17:57)
[2018-11-07] MEDS: PRENATAL VITAMINS W/ FOLIC ACID TABLET (FP) PO SCH (10:18)
[2018-11-07] MEDS: THIAMINE HCL 100 MG TABLET (FP) PO SCH (21:10)
[2018-11-07] MEDS: MELATONIN 5 MG TABLETS PO PRN (21:10)
[2018-11-07] MEDS: MIRTAZAPINE 15 MG TABLET (FP) PO SCH (21:10)
[2018-11-08] MEDS: PRENATAL VITAMINS W/ FOLIC ACID TABLET (FP) PO SCH (09:45)
[2018-11-08] MEDS: hydrOXYzine PAMOATE 50 MG CAPSULE (FP) PO PRN ×2 (09:45→18:50)
[2018-11-08] MEDS: ACETAMINOPHEN 325 MG TABLET (FP) PO PRN (18:50)
[2018-11-08] MEDS: MELATONIN 5 MG TABLETS PO PRN (21:26)
[2018-11-08] MEDS: THIAMINE HCL 100 MG TABLET (FP) PO SCH (21:26)
[2018-11-08] MEDS: MIRTAZAPINE 15 MG TABLET (FP) PO SCH (21:26)
[2018-11-09] MEDS: PRENATAL VITAMINS W/ FOLIC ACID TABLET (FP) PO SCH (10:12)
[2018-11-09] MEDS: hydrOXYzine PAMOATE 50 MG CAPSULE (FP) PO PRN ×2 (10:12→15:52)
[2018-11-09] MEDS: GABAPENTIN 300 MG CAPSULE (FP) PO PRN (15:52)
[2018-11-09] MEDS: MELATONIN 5 MG TABLETS PO PRN (21:10)
[2018-11-09] MEDS: MIRTAZAPINE 15 MG TABLET (FP) PO SCH (21:10)
[2018-11-09] MEDS: THIAMINE HCL 100 MG TABLET (FP) PO SCH (21:10)
[2018-11-10] MEDS: hydrOXYzine PAMOATE 50 MG CAPSULE (FP) PO PRN ×2 (10:07→16:38)
[2018-11-10] MEDS: GABAPENTIN 300 MG CAPSULE (FP) PO PRN ×2 (10:07→21:30)
[2018-11-10] MEDS: PRENATAL VITAMINS W/ FOLIC ACID TABLET (FP) PO SCH (10:07)
[2018-11-10] MEDS: THIAMINE HCL 100 MG TABLET (FP) PO SCH (21:29)
[2018-11-10] MEDS: MIRTAZAPINE 15 MG TABLET (FP) PO SCH (21:29)
[2018-11-10] MEDS: MELATONIN 5 MG TABLETS PO PRN (21:29)
[2018-11-11] MEDS: PRENATAL VITAMINS W/ FOLIC ACID TABLET (FP) PO SCH (10:10)
[2018-11-11] MEDS: hydrOXYzine PAMOATE 50 MG CAPSULE (FP) PO PRN ×2 (10:11→14:37)
[2018-11-11] MEDS: GABAPENTIN 300 MG CAPSULE (FP) PO PRN ×2 (10:11→21:10)
[2018-11-11] MEDS: MIRTAZAPINE 15 MG TABLET (FP) PO SCH (21:09)
[2018-11-11] MEDS: MELATONIN 5 MG TABLETS PO PRN (21:09)
[2018-11-11] MEDS: THIAMINE HCL 100 MG TABLET (FP) PO SCH (21:09)
[2018-11-12] MEDS: PRENATAL VITAMINS W/ FOLIC ACID TABLET (FP) PO SCH (09:10)
[2018-11-12] MEDS: GABAPENTIN 300 MG CAPSULE (FP) PO PRN (09:10)
[2018-11-12] MEDS: hydrOXYzine PAMOATE 50 MG CAPSULE (FP) PO PRN ×2 (09:10→15:22)
[2018-11-12] MEDS: MELATONIN 5 MG TABLETS PO PRN (21:24)
[2018-11-12] MEDS: MIRTAZAPINE 15 MG TABLET (FP) PO SCH (21:24)
[2018-11-12] MEDS: THIAMINE HCL 100 MG TABLET (FP) PO SCH (21:24)
[2018-11-13] MEDS: PRENATAL VITAMINS W/ FOLIC ACID TABLET (FP) PO SCH (10:05)
[2018-11-13] MEDS: GABAPENTIN 300 MG CAPSULE (FP) PO PRN (10:06)
[2018-11-13] MEDS: hydrOXYzine PAMOATE 50 MG CAPSULE (FP) PO PRN ×2 (10:06→14:15)
[2018-11-13] MEDS: THIAMINE HCL 100 MG TABLET (FP) PO SCH (21:04)
[2018-11-13] MEDS: MELATONIN 5 MG TABLETS PO PRN (21:04)
[2018-11-13] MEDS: MIRTAZAPINE 15 MG TABLET (FP) PO SCH (21:04)
[2018-11-14] MEDS: GABAPENTIN 300 MG CAPSULE (FP) PO PRN ×2 (09:56→21:26)
[2018-11-14] MEDS: hydrOXYzine PAMOATE 50 MG CAPSULE (FP) PO PRN ×2 (09:56→21:26)
[2018-11-14] MEDS: PRENATAL VITAMINS W/ FOLIC ACID TABLET (FP) PO SCH (09:56)
--- NOTE | 2018-11-14 13:45 | DS ---
[facility] Rehab Discharge Summary - [facility] Rehab Discharge Summary Admission Date: 11/02/18 Discharge Date: 11/15/18 - History Present History: Alcohol dependence, Cocaine dependence Pertinent Past History: 28 years old male with ten years of cocaine dependence. Patient reports that he is court mandated to this admission because he tested positive to cocaine during a routine probation drug test. He reports history of depression and anxiety. Denies suicidal ideation at this time. Mr. Dee is a patient at [facility], under the care of Trisha Rdz NP - Discharge Physical Exam Vital Signs: Vital Signs Temperature 97.9 F 11/14/18 10:00 Pulse Rate 85 11/14/18 10:00 Respiratory Rate 18 11/14/18 10:00 Blood Pressure 111/69 11/14/18 10:00 O2 Sat by Pulse Oximetry (%) Pertinent Admission Physical Exam Findings: Physical General Appearance: no apparent distress HEENTM: Normal Voice, PERRLA, normocephalic Respiratory: Lungs Clear, Neck: Supple Cardiology: S1, S2 Abdominal: +Bowel Sounds, Soft Musculoskeletal: full weight bearing, full ROM, steady gait Neurological:CN 2-12 intact, motor strength 5/5 Integumentary: skin color consistent throughout trunk and extremities - Treatment Discharge Condition: Outpatient referral accepted (medically stable for discharge; not acute or urgent medical problems that require continued hospitalization.Patient will return to [facility].) Hospital Course: patient attended meetings, met with his counselor, was seen by the psychiatric service. He was adherent to his treatment plan and medication regimen. - Medication Discharge Medications: Ambulatory Orders hydrOXYzine HCL [Atarax -] 50 mg PO QID PRN 10/19/18 Mirtazapine [Remeron -] 15 mg PO HS #30 tablet 11/14/18 Gabapentin [Neurontin -] 300 mg PO Q8H PRN #14 capsule 11/15/18 - Medication-Assisted Treatment (MAT) Medication-Assisted Treatment (MAT): Yes Medication Prescribed: Vivitrol (inj) (Patient will receive treatment at [facility] , Trisha Rdz, [facility] is his provider. His injection is due in 1.5 weeks.) - Discharge Instructions Diet, activity, other medical instructions: Diet: as tolerated Activity: as tolerated Other medical instructions: please keep aftercare appointment at [facility]. Gabapentin was prescribed for 1 week, patient was instructed to follow up with psychiatric care provider to determine if he should continue on gabapentin or another medication. Patient understood and agreed with the instruction. - Diagnosis (1) Alcohol abuse Current Visit: No Status: Chronic (2) Cocaine dependence Current Visit: No Status: Acute Qualifiers: Substance use status: uncomplicated Qualified Code(s): F14.20 - Cocaine dependence, uncomplicated - Follow-up Referral Minutes to complete discharge: 20 - AMA Did Patient Leave Against Medical Advice: No
--- NOTE | 2018-11-14 15:05 | PN ---
[facility] Progress Note Note: Patient is scheduled for discharge tomorrow. Script for [id number] mg/hs will be electronically transmitted to [facility] at [address] [place], [place] [id number]
[2018-11-14] MEDS: THIAMINE HCL 100 MG TABLET (FP) PO SCH (21:24)
[2018-11-14] MEDS: MIRTAZAPINE 15 MG TABLET (FP) PO SCH (21:24)
[2018-11-14] MEDS: MELATONIN 5 MG TABLETS PO PRN (21:25)
[2018-11-14] MEDS: ACETAMINOPHEN 325 MG TABLET (FP) PO PRN (21:26)
[2018-11-15 06:52] VITALS: BP 132/76; PULSE 108; TEMP 98
== END 2018-11-15 08:53 | disposition home or self-care (01) | DRG 772 ==
LOC: YASAS 16:45 → Y3W 20:37
PROVIDERS: ADMIT Neuromusculoskeletal Medicine & OMM; ATTEND Neuromusculoskeletal Medicine & OMM
PROC: HZ42ZZZ Group Counseling for Substance Abuse Treatment, Cognitive-Behavioral (ICD-10-PCS; principal; 2018-11-02)
DX: F14.20 Cocaine dependence, uncomplicated (principal); F10.10 Alcohol abuse, uncomplicated; F17.210 Nicotine dependence, cigarettes, uncomplicated